=== PATIENT | male | born 1970 | race Two or more races ===

== ENCOUNTER 2018-09-26 20:45 | Emergency (ER) | payer MEDICARE, MEDICAID ==
[~2018-09-26] VITALS: Ht 165.1 cm; Wt 195.0 kg
[~2018-09-26 20:45] MED LIST: DIAZ10TA3 PO; NOR10T PO
[2018-09-26 22:15] LABS: Basophils # (auto) 0 uL; Basophils % (auto) 0.3 % (0.0-2.0); Eosinophils # (auto) 0.1 uL; Eosinophils % (auto) 1.5 % (0.0-7.0); Hematocrit 48.8 % (41.0-53.0); Hemoglobin 16.5 g/dL (13.5-17.5); Lymphocytes # (auto) 1.9 uL; Lymphocytes % (auto) 25.5 % (10.0-50.0); Mean Corpuscular Hgb Conc. 33.8 g/dL (32.0-36.0); Mean Corpuscular Volume 97.8 fL (80.0-100.0); Monocytes # (auto) 0.6 uL; Monocytes % (auto) 8.3 % (0.0-12.0); Neutrophils # (auto) 4.8 uL; Neutrophils % (auto) 64.4 % (37.0-80.0); Platelet Count (auto) 174 10^3/uL (140-450); Red Blood Cells 4.99 10^6/uL (4.5-5.90); Red Cell Distribution Width 13.5 % (11.8-14.3); White Blood Cell 7.4 10^3/uL (4.4-10.8)
[2018-09-26 22:31] LABS: Alanine Aminotransferase 37 U/L (16-61); Albumin 3.7 g/dL (3.4-5.0); Anion Gap 5 (5-15); Blood Urea Nitrogen 20 mg/dL (7-18); Calcium 8.8 mg/dL (8.5-10.1); Carbon Dioxide 29 mmol/L (21-32); Chloride 103 mmol/L (98-107); Glucose 116 mg/dL (74-106); Potassium 4.2 mmol/L (3.5-5.1); Sodium 137 mmol/L (136-145)
[2018-09-26 22:36] LABS: Alkaline Phosphatase 75 U/L (45-117); Aspartate Aminotransferase 25 U/L (15-37); BUN/Creatinine Ratio 21.7; Bilirubin, Total 0.7 mg/dL (0.2-1.0); GFR African American 113 mL/min; GFR Non-African American 93 mL/min; Total Protein 8.1 g/dL (6.4-8.2)
[2018-09-26] MEDS ORDERED: cefTRIAXone W LIDOCAINE 1 GM IM IM ONE (22:45)
[2018-09-26] MEDS ORDERED: cefTRIAXone SOD 1,000 MG VL ONE (23:18)
[2018-09-26] MEDS ORDERED: LIDOCAINE 1%HCL (LOCAL ANESTH) 10 ML MDV ONE (23:18)
[2018-09-27 00:01] VITALS: BP 129/70
== END 2018-09-27 00:21 | disposition home or self-care (01) ==
LOC: ER 20:47
DX: J18.9 Pneumonia, unspecified organism (principal); E86.0 Dehydration; K02.9 Dental caries, unspecified; I10 Essential (primary) hypertension; Z87.440 Personal history of urinary (tract) infections
CPT/HCPCS: 36415; 71045; 80053; 84484; 85025; 96372; 99284; J0696; J2001

== ENCOUNTER 2019-01-09 21:39 | Emergency (ER) | payer MEDICARE, MEDICAID ==
[~2019-01-09] VITALS: Ht 165.1 cm; Wt 204.1 kg
[2019-01-09] MEDS ORDERED: ALBUTEROL SULF 2.5 MG/0.5ML(0.5%) NEB SOLN HHN STA (21:52)
[2019-01-09] MEDS ORDERED: IPRATROPIUM BROM 0.5 MG/2.5ML INH SOL NEB ONE (22:00)
[2019-01-09 22:35] LABS: Hematocrit 46.1 % (41.0-53.0); Hemoglobin 15.8 g/dL (13.5-17.5); Mean Corpuscular Hemoglobin 33.3 pg (28.0-32.0); Mean Corpuscular Hgb Conc. 34.2 g/dL (32.0-36.0); Mean Corpuscular Volume 97.4 fL (80.0-100.0); Platelet Count (auto) 151 10^3/uL (140-450); Red Blood Cells 4.74 10^6/uL (4.5-5.90); Red Cell Distribution Width 12.8 % (11.8-14.3)
[2019-01-09 22:42] LABS: Band Neutrophils % (manual) 0; Basophils % (manual) 0 (0.0-2.0); Blast Cells 0; Metamyelocytes % 0; Myelocytes % 0; Promyelocytes % 0; Reactive Lymphocytes 0
[2019-01-09 22:55] LABS: Albumin 3.4 g/dL (3.4-5.0); BUN/Creatinine Ratio 24.1; Calcium 8.6 mg/dL (8.5-10.1); Potassium 3.7 mmol/L (3.5-5.1)
[2019-01-09 22:56] LABS: Eosinophils % (manual) 1 (0-7); Lymphocytes % (manual) 22 (10.0-50.0); Monocytes % (manual) 20 (0-12)
[2019-01-09 22:58] LABS: Bilirubin, Total 0.3 mg/dL (0.2-1.0); Total Protein 7.8 g/dL (6.4-8.2)
[2019-01-10 03:28] VITALS: BP 114/65
== END 2019-01-10 04:03 | disposition home or self-care (01) ==
LOC: ER 21:39
DX: J45.901 Unspecified asthma with (acute) exacerbation (principal); I10 Essential (primary) hypertension; Z87.891 Personal history of nicotine dependence; Z87.440 Personal history of urinary (tract) infections
CPT/HCPCS: 36415; 71046; 80053; 85007; 85027; 94640; 99284; J7611; J7644

== ENCOUNTER 2020-05-17 18:31 | Inpatient (IN) | payer MEDICARE, MEDICAID ==
[~2020-05-17] VITALS: Ht 165.1 cm; Wt 206.6 kg
[2020-05-17] MEDS ORDERED: InsuLIN REG 1unit/0.01ml Soln (100units/ml) IV ONE ×2 (19:00→22:30)
[2020-05-17] MEDS ORDERED: SODIUM CHLORIDE 0.9% 500 ML IV ONE (19:00)
[2020-05-17 19:49] LABS: Basophils # (auto) 0 10 ^3/uL (0-0.2); Basophils % (auto) 0.8 % (0.0-2.0); Eosinophils # (auto) 0.1 10 ^3/uL (0-0.8); Eosinophils % (auto) 1.2 % (0.0-7.0); Hemoglobin 15.7 g/dL (13.5-17.5); Lymphocytes # (auto) 1.4 10 ^3/uL (0.4-5.4); Lymphocytes % (auto) 22.8 % (10.0-50.0); Mean Corpuscular Hemoglobin 32.6 pg (28.0-32.0); Mean Corpuscular Hgb Conc. 31.9 g/dL (32.0-36.0); Mean Corpuscular Volume 102.2 fL (80.0-100.0); Monocytes # (auto) 0.6 10 ^3/uL (0-1.3); Monocytes % (auto) 9.1 % (0.0-12.0); Neutrophils # (auto) 4.2 10 ^3/uL (1.6-8.6); Neutrophils % (auto) 66.1 % (37.0-80.0); Nucleated Red Blood Cells % 0.1 %; Platelet Count (auto) 144 10^3/uL (140-450); Red Cell Distribution Width 13.3 % (11.8-14.3); White Blood Cell 6.3 10^3/uL (4.4-10.8)
[2020-05-17 19:59] LABS: Albumin 3.2 g/dL (3.4-5.0); Anion Gap 10 (5-15); Blood Urea Nitrogen 14 mg/dL (7-18); Calcium 8.8 mg/dL (8.5-10.1); Carbon Dioxide 25 mmol/L (21-32); Chloride 96 mmol/L (98-107); INR 1.18 (0.9-1.15); Magnesium 2.3 mg/dL (1.6-2.6); Partial Thromboplastin Time 29.6 sec (23.64-32.05); Potassium 3.6 mmol/L (3.5-5.1); Sodium 131 mmol/L (136-145)
[2020-05-17 20:05] LABS: Alanine Aminotransferase 52 U/L (16-61); Alkaline Phosphatase 145 U/L (45-117); Aspartate Aminotransferase 45 U/L (15-37); Bilirubin, Total 0.8 mg/dL (0.2-1.0); GFR African American 102 mL/min; GFR Non-African American 84 mL/min; Total Protein 7.7 g/dL (6.4-8.2)
[2020-05-17 20:09] LABS: Glucose 474 mg/dL (74-106)
[2020-05-17] MEDS ORDERED: FUROSEMIDE 40 MG/4 ML VIAL IV ONE (21:15)
[2020-05-17] MEDS ORDERED: NITROGLYCERIN 0.4 MG SL TAB SL PRN (23:00)
[2020-05-17] MEDS ORDERED: ONDANSETRON HCL 4 MG/2 ML VIAL IV PRN (23:00)
[2020-05-17] MEDS ORDERED: ACETAMINOPHEN 325 MG TAB PO PRN (23:00)
[2020-05-17] MEDS ORDERED: MORPHINE SULF INJ 2 MG/ML SYRINGE 1ML IV PRN (23:00)
[2020-05-17] MEDS ORDERED: TEMAZEPAM 15 MG CAP PO PRN (23:00)
[2020-05-17] MEDS ORDERED: DEXTROSE (50%) 50ML SYRG IV PRN (23:00)
[2020-05-18] VITALS (7 sets, daily range): BP systolic 113–143; BP diastolic 48–97
[2020-05-18] MEDS: ACCU-CHEK COMFORT CURVE STRIP VI SCH ×4 (00:13→17:27)
[2020-05-18] MEDS: InsuLIN REG 1unit/0.01ml Soln (100units/ml) SC SCH ×4 (00:13→18:20)
--- NOTE | 2020-05-18 00:41 | NUR ---
Patient arrived on the unit Patient arrived on the unit via stretcher. Patient ambulated with steady gait. A&Ox4. Patient on 12L non-rebreather mask. Patient respirations are even and non labored. O2 sat at 97%. Patient oriented to unit, room, tv, and call light. Patient did not want RN to go through personal belonging bag. RN educated patient that patient cannot take any home medications that patient may have with him. Patient verbalized understanding. Will continue to monitor.
--- NOTE | 2020-05-18 01:05 | NUR ---
[facility] HOSPITALIST REGARDING PAIN Patient c/o general/moderate chronic body pain. Patient requesting pain medication. Patient reports taking Norco10 at home.
--- NOTE | 2020-05-18 03:35 | NUR ---
PAGED HOSPITALIST Patient c/o pain and asking for [place] 10.
--- NOTE | 2020-05-18 04:28 | NUR ---
PATIENT C/O PAIN. PAGED HOSPITALIST Patient c/o general body pain and requesting [place] 10. Patient reports he takes this medication at home for chronic pain.
--- NOTE | 2020-05-18 05:17 | NUR ---
PAGED HOSPITALIST PATIENT C/O PAIN AND REQUESTING PAIN MEDICATION.
--- NOTE | 2020-05-18 05:20 | NUR ---
RECEIVED CALL BACK FROM HOSPITALIST Received new orders. Read back and verified.
[2020-05-18] MEDS ORDERED: HYDROcodone-ACET 5/325MG TAB PO PRN (05:30)
[2020-05-18] MEDS: FUROSEMIDE 40 MG/4 ML VIAL IV SCH ×2 (05:47→17:27)
[2020-05-18 06:57] LABS: Basophils # (auto) 0 10 ^3/uL (0-0.2); Basophils % (auto) 0.3 % (0.0-2.0); Eosinophils # (auto) 0 10 ^3/uL (0-0.8); Eosinophils % (auto) 0.6 % (0.0-7.0); Hematocrit 43.9 % (41.0-53.0); Hemoglobin 14.8 g/dL (13.5-17.5); Lymphocytes # (auto) 1.4 10 ^3/uL (0.4-5.4); Lymphocytes % (auto) 18.5 % (10.0-50.0); Mean Corpuscular Hemoglobin 32.9 pg (28.0-32.0); Mean Corpuscular Hgb Conc. 33.7 g/dL (32.0-36.0); Mean Corpuscular Volume 97.6 fL (80.0-100.0); Monocytes # (auto) 0.6 10 ^3/uL (0-1.3); Monocytes % (auto) 7.8 % (0.0-12.0); Neutrophils # (auto) 5.5 10 ^3/uL (1.6-8.6); Neutrophils % (auto) 72.8 % (37.0-80.0); Nucleated Red Blood Cells % 0.1 %; Platelet Count (auto) 140 10^3/uL (140-450); Red Blood Cells 4.49 10^6/uL (4.5-5.90); Red Cell Distribution Width 12.8 % (11.8-14.3); White Blood Cell 7.5 10^3/uL (4.4-10.8)
[2020-05-18 07:14] LABS: Calcium 8.6 mg/dL (8.5-10.1); Potassium 3.7 mmol/L (3.5-5.1)
[2020-05-18 07:17] LABS: BUN/Creatinine Ratio 20.8
--- NOTE | 2020-05-18 08:00 | NUR ---
Received pt sleeping comfortably, call light with in reach, will continue to monitor pt.
[2020-05-18] MEDS: amLODIPine BESYLATE 5 MG TAB PO SCH (09:27)
[2020-05-18] MEDS: FAMOTIDINE 20 MG TAB PO SCH ×2 (09:27→21:24)
[2020-05-18] MEDS: ASPirin 81 mg TAB PO SCH (09:27)
[2020-05-18] MEDS: LISINOPRIL 20 MG TAB PO SCH (09:28)
[2020-05-18] MEDS ORDERED: ENOXAPARIN SOD 40 MG/0.4 ML SYRINGE SC SCH (10:00)
[2020-05-18 11:38] LABS: Urine Bacteria NONE SEEN /hpf (None Seen); Urine Blood 2+ /uL (Negative); Urine Specific Gravity 1.031 (1.001-1.035); Urine WBC 18 /hpf (0 - 3)
--- NOTE | 2020-05-18 12:17 | NUR ---
Dr. Sethi at unit to see pt, doctor informed of pt's high blood sugar of 404 and 402, also that pt is requesting a stronger dosage of [place], pt stated that he takes [place] 10/325 mg 2 tablet q hr prn at home, orders received for [place] 10/325mg one tablet po Q6hr prn.
[2020-05-18] MEDS: HYDROcodone-ACET 10/325MG TAB PO PRN ×2 (12:29→18:22)
[2020-05-18] MEDS ORDERED: cefTRIAXone 1GM/50ML D5W 50 ML IV ONE (12:45)
--- NOTE | 2020-05-18 15:11 | NUR ---
Nutrition Assessment/consult Notes please see attached link for complete assessment Est energy needs ABW 136 [id number] kcal (11-17kcal/kg ABW), Est protein needs: 136-149g (1.0-1.1g/kg ABW). Will reassess prn. Addendum: 05/18/20 at [address] Amended: Links added.
--- NOTE | 2020-05-18 15:35 | NUR ---
PT PLACED ON BEDSIDE PULSE OX. PT ON 6 LITERS SIMPLE MASK, SPO2 98%. TRACH CARE DONE AT THIS TIME. PT HAS 8.0 UNCUFFED TRACH SECURED WITH TRACH TIE. TRACH SITE AND TIE ARE CLEAN. TRACH DRESSING CHANGED. PT STATES HE DOES NOT NEED SUCTION AT THIS TIME.
[2020-05-18] MEDS: RIVAROXABAN 20 MG TAB PO SCH (17:27)
[2020-05-18] MEDS: IPRATROPIUM BROM 0.5 MG/2.5ML INH SOL NEB SCH ×2 (18:00→21:08)
[2020-05-18] MEDS: ALBUTEROL SULF 2.5 MG/0.5ML(0.5%) NEB SOLN NEB SCH ×2 (18:00→21:08)
--- NOTE | 2020-05-18 20:00 | NUR ---
Opening Shift Note Assumed care of patient, awake and alert. A&Ox4. Patient sitting on the side on the bed. No S/S of distress/SOB or pain. Safety measures maintained by keeping the bed locked in lowest position, 2 side rails up, personal items and call light within reach. Instructed on POC and to call for assist PRN, will continue to monitor for changes Q1hr and PRN.
[2020-05-19] MEDS: ACCU-CHEK COMFORT CURVE STRIP VI SCH ×4 (00:22→18:17)
[2020-05-19] MEDS: InsuLIN REG 1unit/0.01ml Soln (100units/ml) SC SCH ×4 (00:22→18:17)
[2020-05-19] MEDS: HYDROcodone-ACET 10/325MG TAB PO PRN ×4 (00:28→21:12)
[2020-05-19] MEDS: ALBUTEROL SULF 2.5 MG/0.5ML(0.5%) NEB SOLN NEB SCH ×4 (00:41→19:13)
[2020-05-19] MEDS: IPRATROPIUM BROM 0.5 MG/2.5ML INH SOL NEB SCH ×4 (00:41→19:13)
[2020-05-19 05:00] VITALS: BP 104/52
[2020-05-19] MEDS: FUROSEMIDE 40 MG/4 ML VIAL IV SCH ×2 (06:32→18:18)
--- NOTE | 2020-05-19 07:30 | NUR ---
Opening Shift Note Assuming care of patient at this time. Patient is awake and alert. Patient denies pain at this time. Patient shows no signs or symptoms of distress or shortness of breath. Bed is locked and lowered with side rails up x2. Instructed patient on the plan of care for today and to call for assistance as needed. Call light within reach. Will continue to round hourly and as needed.
--- NOTE | 2020-05-19 08:19 | NUR ---
RT NOTE: PAGED STAT TO ICU. UNABLE TO SEE PT. WILL SEE PT FOR NEXT SCHEDULED TX.
[2020-05-19 09:00] VITALS: BP 113/61
[2020-05-19] MEDS ORDERED: DEXTROSE (50%) 50ML SYRG IV PRN (09:15)
[2020-05-19] MEDS: FAMOTIDINE 20 MG TAB PO SCH ×2 (09:38→21:09)
[2020-05-19] MEDS: amLODIPine BESYLATE 5 MG TAB PO SCH (09:39)
[2020-05-19] MEDS: LISINOPRIL 20 MG TAB PO SCH (09:40)
[2020-05-19] MEDS: cefTRIAXone 1GM/50ML D5W 50 ML IV SCH (09:41)
[2020-05-19] MEDS: ASPirin 81 mg TAB PO SCH (09:41)
--- NOTE | 2020-05-19 11:22 | NUR ---
RT NOTE: RA ABG ATTEMPTED BUT WAS UNABLE TO OBTAIN AFTER 3 ATTEMPTS. PTS SPO2 FOR THE 15 MIN DURATION OF RA WAS BETWEEN 90-92%. WILL SEE IF A SECOND RT CAN OBTAIN LATER IN SHIFT. PLACED BACK ONTO 6L MASK WITH SPO2 96
[2020-05-19 13:00] VITALS: BP_SYST 127; BP_SYST 87; BP_DIAS 57; BP_DIAS 71
[2020-05-19 13:01] VITALS: BP 127/71
--- NOTE | 2020-05-19 13:30 | NUR ---
1300 Vitals 1300 Vitals were charted incorrectly initially. 1300 vitals will be charted as 1301 to differentiate.
[2020-05-19 17:00] VITALS: BP 120/60
[2020-05-19] MEDS: RIVAROXABAN 20 MG TAB PO SCH (18:19)
--- NOTE | 2020-05-19 19:11 | NUR ---
Closing Shift Note Patient resting in bed. No distress noted. Will endorse care to the cage shift manager RN.
[2020-05-19 22:00] VITALS: BP 111/59
[2020-05-20] MEDS: ACCU-CHEK COMFORT CURVE STRIP VI SCH ×3 (00:28→12:00)
[2020-05-20] MEDS: InsuLIN REG 1unit/0.01ml Soln (100units/ml) SC SCH ×3 (00:28→12:00)
[2020-05-20] MEDS: IPRATROPIUM BROM 0.5 MG/2.5ML INH SOL NEB SCH ×3 (00:46→12:24)
[2020-05-20] MEDS: ALBUTEROL SULF 2.5 MG/0.5ML(0.5%) NEB SOLN NEB SCH ×3 (00:46→12:24)
[2020-05-20 05:00] VITALS: BP 130/61
[2020-05-20] MEDS: FUROSEMIDE 40 MG/4 ML VIAL IV SCH (06:46)
[2020-05-20] MEDS: HYDROcodone-ACET 10/325MG TAB PO PRN (07:28)
[2020-05-20] MEDS: cefTRIAXone 1GM/50ML D5W 50 ML IV SCH (09:00)
[2020-05-20 09:01] VITALS: BP 121/69
[2020-05-20] MEDS: LISINOPRIL 20 MG TAB PO SCH (09:48)
[2020-05-20] MEDS: amLODIPine BESYLATE 5 MG TAB PO SCH (09:49)
[2020-05-20] MEDS: FAMOTIDINE 20 MG TAB PO SCH (09:49)
[2020-05-20] MEDS: ASPirin 81 mg TAB PO SCH (09:50)
--- NOTE | 2020-05-20 11:26 | NUR ---
Assessment Patient is a 49-year-old male who is alert and oriented. Prior to admission patient lived home with family and functioned independently. Per patient he can care for his own ADLs. Patient informed me he has home oxygen for home use. Per patient he has a trach. Per patient he will return home to his prior living arrangements post discharge and his will transport him home. Advise patient there is a social service consult for home oxygen at 3 l/min. Informed patient clinical information will be faxed to [facility] and they will deliver portable to bedside. Informed patient he has the right to participate in all discharge planning. Patient verbalized understanding and agreed to discharge plan. Faxed clinical information to [facility] requesting for oxygen to be deliver to bedside. Per Estela with [facility] Ph: ) they will deliver oxygen to bedside at 12:30. Informed KHOI Kapadia. Addendum: 05/20/20 at 1127 by CHRIS [place]O Amended: Links added.
--- NOTE | 2020-05-20 11:30 | NUR ---
IV removed/Gauthier Removed IV catheter removed at this time. Gauthier catheter was removed at this time as well. Patient tolerated well.
[2020-05-20 11:48] VITALS: BP 121/69
--- NOTE | 2020-05-20 12:10 | NUR ---
Home Oxygen Call from [facility]. Patient's home oxygen was delivered. Will pick-up the oxygen with patient when patient is discharged.
--- NOTE | 2020-05-20 12:30 | NUR ---
Urinated Patient has urinated since removal of negro catheter.
--- NOTE | 2020-05-20 12:30 | NUR ---
Mask and Nebulizer Belongings Respiratory therapist asked patient if he would like to take masks and tubing home. Patient states that we should toss it, " I have enough junk at home."
[2020-05-20 12:41] VITALS: BP 100/58
--- NOTE | 2020-05-20 13:07 | NUR ---
Discharge Discharge instructions given as ordered. Encourage to follow up with PMD as instructed. All questions and concerns addressed. Patient verbalized understanding. Medication reconciliation form completed and copy given to patient. IV removed with catheter intact, negro catheter removed. Telemetry unit returned to ICU. Patient taken to vehicle via wheelchair with all personal belongings, accompanied by staff. Home oxygen in lobby given to patient and placed in backseat by this RN and sarai Barrett. No distress noted at time of departure.
== END 2020-05-20 13:20 | disposition home or self-care (01) | DRG 637 ==
LOC: EDBD 18:31 → ER 18:31 → TELE 18:32 → TELE-CENTR 23:58
PROVIDERS: ADMIT Nurse Practitioner; ATTEND Family Medicine
DX: E11.10 Type 2 diabetes mellitus with ketoacidosis without coma (principal); J96.20 Acute and chronic respiratory failure, unspecified whether with hypoxia or hypercapnia; E66.2 Morbid (severe) obesity with alveolar hypoventilation; Z68.45 Body mass index [BMI] 70 or greater, adult; N39.0 Urinary tract infection, site not specified; E87.1 Hypo-osmolality and hyponatremia; E87.4 Mixed disorder of acid-base balance; G89.4 Chronic pain syndrome; I10 Essential (primary) hypertension; E11.65 Type 2 diabetes mellitus with hyperglycemia; Z79.01 Long term (current) use of anticoagulants; Z83.3 Family history of diabetes mellitus; Z87.01 Personal history of pneumonia (recurrent); Z91.19 Patient's noncompliance with other medical treatment and regimen; Z88.1 Allergy status to other antibiotic agents; Z20.828 Contact with and (suspected) exposure to other viral communicable diseases
CPT/HCPCS: 36415; 36600; 71045; 80048; 80053; 81001; 82010; 82805; 82962; 83036; 83735; 83880; 84484; 85025; 85379; 85610; 85730; 93005; 93306; 94640; 94762; 96361; 96365; 96375; 99291; G0378; J0696; J1815

== ENCOUNTER 2020-11-15 06:42 | Emergency (ER) | payer MEDICARE, MEDICAID ==
[2020-11-15] MEDS ORDERED: KETAMINE 50mg/ML 10ml Vial (500mg/10ml) IV ONE (07:00)
[2020-11-15 08:19] VITALS: BP 167/109
== END 2020-11-15 09:28 | disposition home or self-care (01) ==
LOC: EDBD 06:42 → ER 06:42
DX: J18.9 Pneumonia, unspecified organism (principal); I11.0 Hypertensive heart disease with heart failure; I50.9 Heart failure, unspecified; Z43.0 Encounter for attention to tracheostomy; Z87.440 Personal history of urinary (tract) infections; Z87.891 Personal history of nicotine dependence
CPT/HCPCS: 71045; 96374

== ENCOUNTER 2020-12-22 19:38 | Emergency (ER) | payer MEDICARE, MEDICAID ==
[~2020-12-22] VITALS: Ht 165.1 cm; Wt 204.1 kg
[2020-12-22 20:54] LABS: Basophils # (auto) 0 10 ^3/uL (0-0.2); Basophils % (auto) 0.5 % (0.0-2.0); Eosinophils # (auto) 0.1 10 ^3/uL (0-0.8); Eosinophils % (auto) 1.2 % (0.0-7.0); Hematocrit 45.7 % (41.0-53.0); Hemoglobin 15.8 g/dL (13.5-17.5); Lymphocytes # (auto) 1.5 10 ^3/uL (0.4-5.4); Lymphocytes % (auto) 14.5 % (10.0-50.0); Mean Corpuscular Hemoglobin 33.1 pg (28.0-32.0); Mean Corpuscular Hgb Conc. 34.6 g/dL (32.0-36.0); Mean Corpuscular Volume 95.5 fL (80.0-100.0); Monocytes # (auto) 0.8 10 ^3/uL (0-1.3); Monocytes % (auto) 7.6 % (0.0-12.0); Neutrophils # (auto) 7.9 10 ^3/uL (1.6-8.6); Neutrophils % (auto) 76.2 % (37.0-80.0); Nucleated Red Blood Cells % 0.1 %; Platelet Count (auto) 194 10^3/uL (140-450); Red Blood Cells 4.79 10^6/uL (4.5-5.90); Red Cell Distribution Width 13.4 % (11.8-14.3); White Blood Cell 10.3 10^3/uL (4.4-10.8)
[2020-12-22 21:12] LABS: INR 1.11 (0.9-1.15); Partial Thromboplastin Time 35.7 sec (23.0-31.2)
[2020-12-22 21:16] LABS: Albumin 3.5 g/dL (3.4-5.0); Anion Gap 5 (5-15); Blood Urea Nitrogen 12 mg/dL (7-18); Calcium 8.9 mg/dL (8.5-10.1); Carbon Dioxide 29 mmol/L (21-32); Chloride 101 mmol/L (98-107); Glucose 116 mg/dL (74-106); Magnesium 1.8 mg/dL (1.6-2.6); Potassium 3.8 mmol/L (3.5-5.1); Sodium 135 mmol/L (136-145)
[2020-12-22 21:23] LABS: Alanine Aminotransferase 28 U/L (16-61); Alkaline Phosphatase 76 U/L (45-117); Aspartate Aminotransferase 24 U/L (15-37); Bilirubin, Total 0.4 mg/dL (0.2-1.0); GFR African American 132 mL/min; GFR Non-African American 109 mL/min; Total Protein 8.8 g/dL (6.4-8.2)
[2020-12-23 06:00] VITALS: BP 147/80
== END 2020-12-23 07:26 | disposition home or self-care (01) ==
LOC: EDBD 19:38 → ER 19:43
DX: R07.89 Other chest pain (principal); I11.0 Hypertensive heart disease with heart failure; I50.9 Heart failure, unspecified; E11.9 Type 2 diabetes mellitus without complications; Z87.891 Personal history of nicotine dependence; Z79.899 Other long term (current) drug therapy
CPT/HCPCS: 36415; 71045; 80053; 83735; 83880; 84484; 85025; 85610; 85730; 93005

== ENCOUNTER 2021-11-30 14:08 | Inpatient (IN) | payer MEDICARE, MEDICAID ==
[~2021-11-30] VITALS: Ht 157.5 cm; Wt 189.3 kg
[2021-11-30 15:51] LABS: Basophils # (auto) 0 10 ^3/uL (0-0.2); Basophils % (auto) 0.5 % (0.0-2.0); Eosinophils # (auto) 0 10 ^3/uL (0-0.8); Eosinophils % (auto) 0.2 % (0.0-7.0); Hemoglobin 15.1 g/dL (13.5-17.5); Lymphocytes # (auto) 1.2 10 ^3/uL (0.4-5.4); Lymphocytes % (auto) 31.1 % (10.0-50.0); Mean Corpuscular Hemoglobin 32.1 pg (28.0-32.0); Mean Corpuscular Hgb Conc. 34.2 g/dL (32.0-36.0); Mean Corpuscular Volume 93.7 fL (80.0-100.0); Monocytes # (auto) 0.6 10 ^3/uL (0-1.3); Monocytes % (auto) 14.8 % (0.0-12.0); Neutrophils # (auto) 2.1 10 ^3/uL (1.6-8.6); Neutrophils % (auto) 53.4 % (37.0-80.0); Nucleated Red Blood Cells % 0.2 %; Red Blood Cells 4.69 10^6/uL (4.5-5.90); Red Cell Distribution Width 13.1 % (11.8-14.3); White Blood Cell 3.9 10^3/uL (4.4-10.8)
[2021-11-30 16:06] LABS: Albumin 3.4 g/dL (3.4-5.0); Calcium 8.6 mg/dL (8.5-10.1); Potassium 3.3 mmol/L (3.5-5.1)
[2021-11-30 16:18] LABS: BUN/Creatinine Ratio 13.4; Bilirubin, Total 0.6 mg/dL (0.2-1.0)
[2021-11-30 20:45] VITALS: BP 138/85
[2021-11-30] MEDS ORDERED: AZITHROMYCIN 250 MG TAB PO ONE (23:15)
[2021-11-30] MEDS ORDERED: cefTRIAXone 1GM/50ML D5W 50 ML IV ONE (23:15)
[2021-12-01] MEDS ORDERED: NITROGLYCERIN 0.4 MG SL TAB SL PRN (03:45)
[2021-12-01] MEDS ORDERED: ONDANSETRON HCL 4 MG/2 ML VIAL IV PRN (03:45)
[2021-12-01] MEDS ORDERED: MORPHINE SULFATE INJECTION 2 MG/ML SYRG IV PRN (03:45)
[2021-12-01] MEDS ORDERED: ACETAMINOPHEN 500 MG TAB PO PRN (03:45)
[2021-12-01] MEDS ORDERED: REMDESIVIR PER PHARMACY 0 ML IV SCH (03:45)
[2021-12-01] MEDS ORDERED: DEXTROSE (50%) 50ML SYRG IV PRN (03:45)
[2021-12-01] MEDS: ACCU-CHEK COMFORT CURVE STRIP VI SCH ×3 (08:07→17:51)
[2021-12-01] MEDS: InsuLIN REG 1unit/0.01ml Soln (100units/ml) SC SCH ×4 (08:07→22:45)
[2021-12-01 08:45] VITALS: BP 138/85
[2021-12-01] MEDS ORDERED: HYDROcodone-ACET 10/325MG TAB PO ONE (09:30)
[2021-12-01] MEDS: cefTRIAXone 1GM/50ML D5W 50 ML IV SCH (09:47)
[2021-12-01] MEDS: ENOXAPARIN SOD 40 MG/0.4 ML SYRINGE SC SCH ×2 (10:00→11:44)
[2021-12-01] MEDS: ZINC SULFATE 220mg CAP or TAB PO SCH (11:43)
[2021-12-01] MEDS: ASCORBIC ACID 1,000 MG TAB PO SCH (11:43)
[2021-12-01] MEDS: CHOLECALCIFEROL (VITD3) 2,000 UNIT CAP/TAB PO SCH (11:43)
[2021-12-01] MEDS: AZITHROMYCIN 500MG/ 250ML 250 ML IV SCH (11:44)
[2021-12-01] MEDS: DexAMETHasone SOD PHOS 10MG/1ML VIAL INJ IV SCH (11:44)
[2021-12-01 12:43] VITALS: BP 138/85
[2021-12-01] MEDS ORDERED: LORazepam 0.5 MG TAB PO PRN (14:45)
[2021-12-01] MEDS ORDERED: POTASSIUM CHL 20 Meq TABLET PO ONE (14:45)
[2021-12-01] MEDS ORDERED: RIVA20TA PO (14:50)
[2021-12-01] MEDS ORDERED: ASPI-543 PO (14:50)
[2021-12-01] MEDS ORDERED: FENO200C PO (14:50)
[2021-12-01] MEDS ORDERED: FURO40TA4 PO (14:50)
[2021-12-01] MEDS ORDERED: LISI20TA28 PO (14:50)
[2021-12-01] MEDS ORDERED: AMLO-489 PO (14:50)
[2021-12-01] MEDS ORDERED: REMDESIVIR 200 MG in NS 210ml LOADING DOSE ADULT IV ONE (15:00)
[2021-12-01 17:47] VITALS: BP 142/60
[2021-12-01] MEDS: HYDROcodone-ACET 10/325MG TAB PO PRN (18:07)
[2021-12-01 21:23] VITALS: BP 118/63
[2021-12-01] MEDS: INSULIN LANTUS (GLARGINE) 1 /0.01ml (100units/ml) SC SCH (22:46)
[2021-12-02] MEDS: ACCU-CHEK COMFORT CURVE STRIP VI SCH ×5 (00:04→21:43)
[2021-12-02] MEDS: ENOXAPARIN SOD 40 MG/0.4 ML SYRINGE SC SCH ×3 (00:06→21:20)
[2021-12-02 06:17] LABS: INR 1.04 (0.9-1.15)
[2021-12-02] MEDS: InsuLIN REG 1unit/0.01ml Soln (100units/ml) SC SCH ×5 (06:25→22:00)
[2021-12-02] MEDS: HYDROcodone-ACET 10/325MG TAB PO PRN ×3 (06:30→21:20)
[2021-12-02 07:04] LABS: Basophils # (auto) 0 10 ^3/uL (0-0.2); Basophils % (auto) 0.4 % (0.0-2.0); Eosinophils # (auto) 0 10 ^3/uL (0-0.8); Hematocrit 40.6 % (41.0-53.0); Lymphocytes # (auto) 0.7 10 ^3/uL (0.4-5.4); Lymphocytes % (auto) 25.9 % (10.0-50.0); Mean Corpuscular Hemoglobin 32.4 pg (28.0-32.0); Mean Corpuscular Hgb Conc. 34.5 g/dL (32.0-36.0); Mean Corpuscular Volume 93.7 fL (80.0-100.0); Monocytes # (auto) 0.4 10 ^3/uL (0-1.3); Monocytes % (auto) 13.6 % (0.0-12.0); Neutrophils # (auto) 1.7 10 ^3/uL (1.6-8.6); Neutrophils % (auto) 60.1 % (37.0-80.0); Nucleated Red Blood Cells % 0.3 %; Red Blood Cells 4.33 10^6/uL (4.5-5.90); White Blood Cell 2.8 10^3/uL (4.4-10.8)
[2021-12-02 07:11] LABS: Potassium 4.3 mmol/L (3.5-5.1)
[2021-12-02 07:26] LABS: Albumin 2.9 g/dL (3.4-5.0); Bilirubin, Total 0.3 mg/dL (0.2-1.0); CRP High Sensitivity 0.55 mg/dL (< 0.3); Calcium 8.8 mg/dL (8.5-10.1); Magnesium 2.1 mg/dL (1.6-2.6); Total Protein 7.2 g/dL (6.4-8.2)
[2021-12-02 09:00] VITALS: BP 96/51
[2021-12-02] MEDS: FUROSEMIDE 20 MG/2 ML VIAL IV SCH (10:00)
[2021-12-02] MEDS ORDERED: POTASSIUM CHL 20 Meq TABLET PO SCH (10:00)
[2021-12-02] MEDS: DexAMETHasone SOD PHOS 10MG/1ML VIAL INJ IV SCH (10:31)
[2021-12-02] MEDS: cefTRIAXone 1GM/50ML D5W 50 ML IV SCH (10:31)
[2021-12-02] MEDS: ASCORBIC ACID 1,000 MG TAB PO SCH (10:32)
[2021-12-02] MEDS: CHOLECALCIFEROL (VITD3) 2,000 UNIT CAP/TAB PO SCH (10:32)
[2021-12-02] MEDS: ZINC SULFATE 220mg CAP or TAB PO SCH (10:33)
[2021-12-02 12:12] LABS: Thyroid Stimulating Hormone 0.27 uIU/mL (0.358-3.74)
[2021-12-02] MEDS: AZITHROMYCIN 500MG/ 250ML 250 ML IV SCH (12:45)
[2021-12-02 13:00] VITALS: BP 133/67
[2021-12-02] MEDS ORDERED: NITR0.4S29 SL (14:49)
[2021-12-02] MEDS ORDERED: FURO80TA3 PO (14:49)
[2021-12-02] MEDS ORDERED: HYDR-4072 PO (14:49)
[2021-12-02] MEDS ORDERED: AMLO-496 PO (14:49)
[2021-12-02] MEDS: REMDESIVIR 100mg 100 MG in SODIUM CHL 0.9% 230 ML IV SCH (16:06)
[2021-12-02 17:00] VITALS: BP 123/72
[2021-12-02 18:41] LABS: Urine Bacteria FEW /hpf (None Seen); Urine Blood Negative /uL (Negative); Urine Hyaline Cast FEW /lpf (0 - 2); Urine Mucus FEW (None Seen); Urine Specific Gravity 1.025 (1.001-1.035); Urine WBC 10 /hpf (0 - 3)
[2021-12-02] MEDS: ALBUTEROL SULF HFA 90MCG INH 200DOSE IN PRN (19:25)
[2021-12-02] MEDS: INSULIN LANTUS (GLARGINE) 1 /0.01ml (100units/ml) SC SCH (21:47)
[2021-12-03] MEDS: ALBUTEROL SULF HFA 90MCG INH 200DOSE IN PRN (06:09)
[2021-12-03] MEDS: HYDROcodone-ACET 10/325MG TAB PO PRN ×3 (06:17→21:10)
[2021-12-03] MEDS: ACCU-CHEK COMFORT CURVE STRIP VI SCH ×4 (06:17→21:34)
[2021-12-03] MEDS: InsuLIN REG 1unit/0.01ml Soln (100units/ml) SC SCH ×4 (06:18→21:35)
[2021-12-03 07:11] LABS: Albumin 2.7 g/dL (3.4-5.0); Basophils # (auto) 0 10 ^3/uL (0-0.2); Basophils % (auto) 0.3 % (0.0-2.0); Bilirubin, Direct 0.1 mg/dL (0-0.2); Bilirubin, Total 0.3 mg/dL (0.2-1.0); Eosinophils # (auto) 0 10 ^3/uL (0-0.8); Hemoglobin 13.3 g/dL (13.5-17.5); Lymphocytes # (auto) 1.1 10 ^3/uL (0.4-5.4); Lymphocytes % (auto) 27.4 % (10.0-50.0); Mean Corpuscular Hemoglobin 31.5 pg (28.0-32.0); Mean Corpuscular Hgb Conc. 33.3 g/dL (32.0-36.0); Mean Corpuscular Volume 94.7 fL (80.0-100.0); Monocytes # (auto) 0.4 10 ^3/uL (0-1.3); Monocytes % (auto) 10.8 % (0.0-12.0); Neutrophils # (auto) 2.4 10 ^3/uL (1.6-8.6); Neutrophils % (auto) 61.5 % (37.0-80.0); Nucleated Red Blood Cells % 0.2 %; Red Blood Cells 4.23 10^6/uL (4.5-5.90); Red Cell Distribution Width 13.1 % (11.8-14.3); Total Protein 6.6 g/dL (6.4-8.2); White Blood Cell 3.9 10^3/uL (4.4-10.8)
[2021-12-03 08:00] VITALS: BP 111/67
[2021-12-03] MEDS: cefTRIAXone 1GM/50ML D5W 50 ML IV SCH (09:14)
[2021-12-03] MEDS: ENOXAPARIN SOD 40 MG/0.4 ML SYRINGE SC SCH ×2 (09:14→21:11)
[2021-12-03] MEDS: ZINC SULFATE 220mg CAP or TAB PO SCH (09:15)
[2021-12-03] MEDS: CHOLECALCIFEROL (VITD3) 2,000 UNIT CAP/TAB PO SCH (09:15)
[2021-12-03] MEDS: ASCORBIC ACID 1,000 MG TAB PO SCH (09:15)
[2021-12-03] MEDS: DexAMETHasone SOD PHOS 10MG/1ML VIAL INJ IV SCH (09:15)
[2021-12-03] MEDS: POTASSIUM CHL 10 Meq TABLET PO SCH (09:16)
[2021-12-03] MEDS: FUROSEMIDE 20 MG/2 ML VIAL IV SCH (09:16)
[2021-12-03] MEDS: AZITHROMYCIN 500MG/ 250ML 250 ML IV SCH (10:00)
[2021-12-03 12:00] VITALS: BP 124/73
[2021-12-03] MEDS: REMDESIVIR 100mg 100 MG in SODIUM CHL 0.9% 230 ML IV SCH (15:32)
[2021-12-03 16:00] VITALS: BP 135/69
[2021-12-03] MEDS: INSULIN LANTUS (GLARGINE) 1 /0.01ml (100units/ml) SC SCH (21:34)
[2021-12-03 22:00] VITALS: BP 136/68
[2021-12-04 05:00] VITALS: BP 130/84
[2021-12-04] MEDS: ALBUTEROL SULF HFA 90MCG INH 200DOSE IN PRN ×2 (05:42→19:08)
[2021-12-04] MEDS: ACCU-CHEK COMFORT CURVE STRIP VI SCH ×4 (06:17→21:37)
[2021-12-04] MEDS: InsuLIN REG 1unit/0.01ml Soln (100units/ml) SC SCH ×4 (06:28→21:41)
[2021-12-04] MEDS: HYDROcodone-ACET 10/325MG TAB PO PRN ×3 (07:10→23:24)
[2021-12-04 09:03] VITALS: BP 114/50
[2021-12-04] MEDS: cefTRIAXone 1GM/50ML D5W 50 ML IV SCH (10:26)
[2021-12-04] MEDS: DexAMETHasone SOD PHOS 10MG/1ML VIAL INJ IV SCH (10:27)
[2021-12-04] MEDS: FUROSEMIDE 20 MG/2 ML VIAL IV SCH (10:27)
[2021-12-04] MEDS: ASCORBIC ACID 1,000 MG TAB PO SCH (10:28)
[2021-12-04] MEDS: CHOLECALCIFEROL (VITD3) 2,000 UNIT CAP/TAB PO SCH (10:29)
[2021-12-04] MEDS: POTASSIUM CHL 10 Meq TABLET PO SCH (10:29)
[2021-12-04] MEDS: ENOXAPARIN SOD 40 MG/0.4 ML SYRINGE SC SCH ×2 (10:29→21:28)
[2021-12-04] MEDS: ZINC SULFATE 220mg CAP or TAB PO SCH (10:29)
[2021-12-04] MEDS: AZITHROMYCIN 500MG/ 250ML 250 ML IV SCH (12:35)
[2021-12-04 13:00] VITALS: BP 122/66
[2021-12-04] MEDS: REMDESIVIR 100mg 100 MG in SODIUM CHL 0.9% 230 ML IV SCH (15:47)
[2021-12-04 17:00] VITALS: BP 126/70
[2021-12-04] MEDS: INSULIN LANTUS (GLARGINE) 1 /0.01ml (100units/ml) SC SCH (21:41)
[2021-12-04 22:00] VITALS: BP 122/70
[2021-12-05 05:00] VITALS: BP 110/71
[2021-12-05 06:21] LABS: Hematocrit 42.8 % (41.0-53.0); Hemoglobin 14.6 g/dL (13.5-17.5)
[2021-12-05] MEDS: ACCU-CHEK COMFORT CURVE STRIP VI SCH ×3 (06:28→17:00)
[2021-12-05] MEDS: InsuLIN REG 1unit/0.01ml Soln (100units/ml) SC SCH ×3 (06:29→17:00)
[2021-12-05 06:44] LABS: Albumin 2.9 g/dL (3.4-5.0); Calcium 8.6 mg/dL (8.5-10.1); Potassium 3.8 mmol/L (3.5-5.1)
[2021-12-05 06:48] LABS: BUN/Creatinine Ratio 30.6; Bilirubin, Total 0.4 mg/dL (0.2-1.0); CRP High Sensitivity 0.06 mg/dL (< 0.3)
[2021-12-05] MEDS: HYDROcodone-ACET 10/325MG TAB PO PRN ×2 (07:09→15:12)
[2021-12-05 08:00] VITALS: BP 115/58
[2021-12-05] MEDS: ALBUTEROL SULF HFA 90MCG INH 200DOSE IN PRN (08:24)
[2021-12-05 09:00] VITALS: BP 115/58
[2021-12-05] MEDS: AZITHROMYCIN 500MG/ 250ML 250 ML IV SCH (09:57)
[2021-12-05] MEDS: FUROSEMIDE 20 MG/2 ML VIAL IV SCH (09:57)
[2021-12-05] MEDS: DexAMETHasone SOD PHOS 10MG/1ML VIAL INJ IV SCH (09:57)
[2021-12-05] MEDS: cefTRIAXone 1GM/50ML D5W 50 ML IV SCH (09:57)
[2021-12-05] MEDS: ASCORBIC ACID 1,000 MG TAB PO SCH (09:58)
[2021-12-05] MEDS: ENOXAPARIN SOD 40 MG/0.4 ML SYRINGE SC SCH (09:58)
[2021-12-05] MEDS: CHOLECALCIFEROL (VITD3) 2,000 UNIT CAP/TAB PO SCH (09:58)
[2021-12-05] MEDS: POTASSIUM CHL 10 Meq TABLET PO SCH (09:58)
[2021-12-05] MEDS: ZINC SULFATE 220mg CAP or TAB PO SCH (09:58)
[2021-12-05 13:00] VITALS: BP 117/76
[2021-12-05] MEDS: REMDESIVIR 100mg 100 MG in SODIUM CHL 0.9% 230 ML IV SCH (15:00)
[2021-12-05] MEDS ORDERED: CHOL20007 PO (15:05)
[2021-12-05] MEDS ORDERED: ZINC220T6 PO (15:05)
[2021-12-05] MEDS ORDERED: ALBUAER3 IN (15:05)
[2021-12-05] MEDS ORDERED: ASCO10003 PO (15:05)
[2021-12-05] MEDS ORDERED: DEX4T PO (15:05)
[2021-12-05] MEDS ORDERED: DOXY-286 PO (15:05)
[2021-12-05 16:38] VITALS: BP 115/58
[2021-12-05 17:00] VITALS: BP 126/71
== END 2021-12-05 17:35 | disposition home or self-care (01) | DRG 871 ==
LOC: ER 14:08 → EDBD 14:08 → TELE 12-01 03:42 → TELE-EAST 12-01 10:35
PROVIDERS: ADMIT Nurse Practitioner; ATTEND Internal Medicine
PROC: XW033E5 Introduction of Remdesivir Anti-infective into Peripheral Vein, Percutaneous Approach, New Technology Group 5 (ICD-10-PCS; principal; 2021-12-01)
DX: A41.89 Other specified sepsis (principal); U07.1 COVID-19; J12.82 Pneumonia due to coronavirus disease 2019; J96.20 Acute and chronic respiratory failure, unspecified whether with hypoxia or hypercapnia; Z68.45 Body mass index [BMI] 70 or greater, adult; E11.9 Type 2 diabetes mellitus without complications; E66.01 Morbid (severe) obesity due to excess calories; E55.9 Vitamin D deficiency, unspecified; E87.6 Hypokalemia; G47.33 Obstructive sleep apnea (adult) (pediatric); F41.9 Anxiety disorder, unspecified; G89.4 Chronic pain syndrome; I11.0 Hypertensive heart disease with heart failure; I50.9 Heart failure, unspecified; Z83.3 Family history of diabetes mellitus
CPT/HCPCS: 36415; 71045; 80053; 80061; 80076; 81001; 82306; 82728; 82962; 83036; 83615; 83735; 84132; 84443; 84484; 85014; 85018; 85025; 85379; 85610; 86141; 87086; 87426; 93005; 94640; 96365; 96367; G0378; J0696; J1100; J1815; J2405

== ENCOUNTER 2022-09-25 16:22 | Inpatient (IN) | payer MEDICARE, MEDICAID ==
[~2022-09-25] VITALS: Ht 165.1 cm; Wt 181.0 kg
[~2022-09-25 16:22] MED LIST changes: +ALBUAER3 IN; +AMLO-496 PO; +ASCO10003 PO; +ASPI-543 PO; +DEX4T PO; -DIAZ10TA3 PO; +DOXY-286 PO; +FENO200C PO; +FURO80TA3 PO; +HYDR-4072 PO; +LISI20TA28 PO; +NITR0.4S29 SL; -NOR10T PO; +RIVA20TA PO; +ZINC220T6 PO
[2022-09-25 18:07] LABS: Basophils # (auto) 0 10 ^3/uL (0-0.2); Basophils % (auto) 0.2 % (0.0-2.0); Eosinophils # (auto) 0.1 10 ^3/uL (0-0.8); Eosinophils % (auto) 0.9 % (0.0-7.0); Hematocrit 47.8 % (41.0-53.0); Hemoglobin 15.7 g/dL (13.5-17.5); Lymphocytes # (auto) 1.3 10 ^3/uL (0.4-5.4); Lymphocytes % (auto) 11.7 % (10.0-50.0); Mean Corpuscular Hemoglobin 31.4 pg (28.0-32.0); Mean Corpuscular Hgb Conc. 32.8 g/dL (32.0-36.0); Mean Corpuscular Volume 95.6 fL (80.0-100.0); Monocytes # (auto) 0.9 10 ^3/uL (0-1.3); Monocytes % (auto) 7.7 % (0.0-12.0); Neutrophils % (auto) 79.5 % (37.0-80.0); Red Cell Distribution Width 13.2 % (11.8-14.3); White Blood Cell 11.3 10^3/uL (4.4-10.8)
[2022-09-25 18:24] LABS: INR 1.04 (0.9-1.15); Partial Thromboplastin Time 27.7 sec (24.6-33.4)
[2022-09-25 18:26] LABS: Albumin 3.4 g/dL (3.4-5.0); Anion Gap 10 (5-15); BUN/Creatinine Ratio 26.1; Blood Urea Nitrogen 18 mg/dL (7-18); Calcium 9.1 mg/dL (8.5-10.1); Carbon Dioxide 25 mmol/L (21-32); Chloride 103 mmol/L (98-107); GFR African American 155 mL/min; GFR Non-African American 128 mL/min; Glucose 165 mg/dL (74-106); Potassium 4.4 mmol/L (3.5-5.1); Sodium 138 mmol/L (136-145)
[2022-09-25 18:29] LABS: Alanine Aminotransferase 38 U/L (16-61); Alkaline Phosphatase 96 U/L (45-117); Aspartate Aminotransferase 43 U/L (15-37); Bilirubin, Total 0.5 mg/dL (0.2-1.0); Total Protein 7.8 g/dL (6.4-8.2)
[2022-09-25] MEDS ORDERED: MORPHINE SULFATE INJ 2 MG/ml SYRG IV PRN (21:30)
[2022-09-25] MEDS ORDERED: NITROGLYCERIN 0.4 MG SL TAB SL PRN (21:30)
[2022-09-25] MEDS ORDERED: ACETAMINOPHEN 325 MG TAB PO PRN (21:30)
[2022-09-25] MEDS ORDERED: ONDANSETRON HCL 4 MG/2 ML VIAL IV PRN (21:30)
[2022-09-25] MEDS ORDERED: DEXTROSE (50%) 50ML SYRG IV PRN (21:30)
[2022-09-25] MEDS ORDERED: TEMAZEPAM 15 MG CAP PO PRN (21:30)
[2022-09-25] MEDS ORDERED: ACCU-CHEK COMFORT CURVE STRIP VI SCH (22:00)
[2022-09-25] MEDS ORDERED: InsuLIN REG 1unit/0.01ml Soln (100units/ml) SC SCH (22:00)
[2022-09-26 06:00] VITALS: BP 135/64
[2022-09-26] MEDS ORDERED: FUROSEMIDE 40 MG TAB PO SCH (06:00)
[2022-09-26] MEDS ORDERED: PANTOPRAZOLE 40 MG TAB PO SCH (10:00)
[2022-09-26] MEDS ORDERED: ENOXAPARIN SOD 40 MG/0.4 ML SYRINGE SC SCH (10:00)
[2022-09-26] MEDS ORDERED: amLODIPine BESYLATE 5 MG TAB PO SCH (10:00)
[2022-09-26] MEDS ORDERED: ASPirin 81 mg TAB PO SCH (10:00)
[2022-09-26] MEDS ORDERED: RIVAROXABAN 20 MG TAB PO SCH (18:00)
== END 2022-09-26 06:10 | disposition left against medical advice (07) | DRG 311 ==
LOC: EDBD 16:22 → ER 16:22 → TELE 21:33
PROVIDERS: ADMIT Nurse Practitioner; ATTEND Nurse Practitioner
DX: I20.0 Unstable angina (principal); Z20.822 Contact with and (suspected) exposure to COVID-19; E11.9 Type 2 diabetes mellitus without complications; E78.5 Hyperlipidemia, unspecified; I11.0 Hypertensive heart disease with heart failure; Z53.29 Procedure and treatment not carried out because of patient's decision for other reasons; I50.9 Heart failure, unspecified; Z80.9 Family history of malignant neoplasm, unspecified; Z83.3 Family history of diabetes mellitus; Z88.1 Allergy status to other antibiotic agents; Z93.0 Tracheostomy status; Z87.440 Personal history of urinary (tract) infections
CPT/HCPCS: 36415; 71045; 80053; 82962; 83880; 84484; 85025; 85610; 85730; 87426; 93005; 96372; 99291; G0378; J1815

== ENCOUNTER 2023-04-29 23:18 | Inpatient (IN) | payer MEDICARE, MEDICAID ==
[~2023-04-29] VITALS: Ht 180.3 cm; Wt 136.3 kg
[~2023-04-29 23:18] MED LIST changes: -AMLO-496 PO; +AMLO1TAB23 PO; -FENO200C PO; +FENO200C25 PO; -LISI20TA28 PO; +LISI20TA56 PO
[2023-04-29 23:43] LABS: Basophils # (auto) 0 10 ^3/uL (0-0.2); Basophils % (auto) 0.4 % (0.0-2.0); Eosinophils # (auto) 0.1 10 ^3/uL (0-0.8); Eosinophils % (auto) 1.4 % (0.0-7.0); Hematocrit 43.1 % (41.0-53.0); Hemoglobin 14.6 g/dL (13.5-17.5); Lymphocytes # (auto) 1.7 10 ^3/uL (0.4-5.4); Lymphocytes % (auto) 24.2 % (10.0-50.0); Mean Corpuscular Hemoglobin 32.2 pg (28.0-32.0); Mean Corpuscular Hgb Conc. 33.9 g/dL (32.0-36.0); Mean Corpuscular Volume 95.1 fL (80.0-100.0); Monocytes # (auto) 0.5 10 ^3/uL (0-1.3); Monocytes % (auto) 7.6 % (0.0-12.0); Neutrophils # (auto) 4.7 10 ^3/uL (1.6-8.6); Neutrophils % (auto) 66.4 % (37.0-80.0); Red Blood Cells 4.53 10^6/uL (4.5-5.90); Red Cell Distribution Width 13.5 % (11.8-14.3); White Blood Cell 7.2 10^3/uL (4.4-10.8)
[2023-04-29 23:59] LABS: INR 1.24 (0.9-1.15); Partial Thromboplastin Time 39.4 SEC (24.5-34.5)
[2023-04-30 00:16] LABS: BUN/Creatinine Ratio 25.3 (10.0-20.0); Potassium 3.5 mmol/L (3.5-5.1)
[2023-04-30 00:17] LABS: Albumin 3.4 g/dL (3.4-5.0); Bilirubin, Total 0.4 mg/dL (0.2-1.0); Calcium 9.1 mg/dL (8.5-10.1); Magnesium 1.8 mg/dL (1.6-2.6); Total Protein 7.8 g/dL (6.4-8.2)
[2023-04-30] MEDS ORDERED: NITROGLYCERIN 0.4 MG SL TAB SL PRN (06:30)
[2023-04-30] MEDS ORDERED: ACETAMINOPHEN 325 MG TAB PO PRN (06:30)
[2023-04-30] MEDS ORDERED: DEXTROSE (50%) 50ML SYRG IV PRN (06:30)
[2023-04-30] MEDS ORDERED: ONDANSETRON HCL 4 MG/2 ML VIAL IV PRN (06:30)
[2023-04-30] MEDS ORDERED: ALBUTEROL SULF 2.5 MG/0.5ML(0.5%) NEB SOLN NEB PRN (06:30)
[2023-04-30] MEDS ORDERED: MORPHINE SULFATE INJ 2 MG/ml SYRG IV PRN (06:30)
[2023-04-30] MEDS: InsuLIN REG 1unit/0.01ml Soln (100units/ml) SC SCH ×4 (07:00→22:43)
[2023-04-30] MEDS: ACCU-CHEK COMFORT CURVE STRIP VI SCH ×4 (07:14→22:20)
[2023-04-30] MEDS: ASPirin 81 mg TAB PO SCH (09:27)
[2023-04-30] MEDS: PANTOPRAZOLE 40 MG TAB PO SCH (09:27)
[2023-04-30] MEDS: LISINOPRIL 20 MG TAB PO SCH (09:29)
[2023-04-30] MEDS: amLODIPine BESYLATE 5 MG TAB PO SCH (09:29)
[2023-04-30] MEDS: PATIENTS OWN MEDICATION (xarelto 20 MG) PO SCH (09:31)
[2023-04-30] MEDS: FUROSEMIDE 40 MG TAB PO SCH (18:24)
[2023-05-01] VITALS (8 sets, daily range): BP systolic 95–127; BP diastolic 44–80
[2023-05-01 05:15] LABS: Basophils # (auto) 0 10 ^3/uL (0-0.2); Basophils % (auto) 0.4 % (0.0-2.0); Eosinophils # (auto) 0.1 10 ^3/uL (0-0.8); Eosinophils % (auto) 1.5 % (0.0-7.0); Hematocrit 41.5 % (41.0-53.0); Hemoglobin 14.2 g/dL (13.5-17.5); Lymphocytes # (auto) 2.3 10 ^3/uL (0.4-5.4); Mean Corpuscular Hemoglobin 32.5 pg (28.0-32.0); Mean Corpuscular Hgb Conc. 34.1 g/dL (32.0-36.0); Mean Corpuscular Volume 95.3 fL (80.0-100.0); Monocytes # (auto) 0.7 10 ^3/uL (0-1.3); Monocytes % (auto) 8.7 % (0.0-12.0); Neutrophils # (auto) 4.5 10 ^3/uL (1.6-8.6); Neutrophils % (auto) 59.4 % (37.0-80.0); Nucleated Red Blood Cells % 0.2 %; Red Blood Cells 4.35 10^6/uL (4.5-5.90); Red Cell Distribution Width 13.4 % (11.8-14.3); White Blood Cell 7.5 10^3/uL (4.4-10.8)
[2023-05-01 05:24] LABS: Calcium 9.1 mg/dL (8.5-10.1)
[2023-05-01 05:26] LABS: BUN/Creatinine Ratio 38.8 (10.0-20.0)
[2023-05-01] MEDS: FUROSEMIDE 40 MG TAB PO SCH ×2 (06:00→18:00)
[2023-05-01] MEDS: InsuLIN REG 1unit/0.01ml Soln (100units/ml) SC SCH ×4 (06:27→22:25)
[2023-05-01] MEDS: ACCU-CHEK COMFORT CURVE STRIP VI SCH ×4 (06:27→22:24)
[2023-05-01] MEDS ORDERED: IODIXANOL 320MG/ML 100ML BTL IV ONE (11:15)
[2023-05-01] MEDS ORDERED: LIDOCAINE 2%HCL (LOCAL ANESTH.) INJ 20ML MDV ONE (11:15)
[2023-05-01] MEDS ORDERED: IOHEXOL 350 MG/ML 100ML IJ ONE (11:32)
[2023-05-01] MEDS ORDERED: ANGIOMAX 250 MG VIAL IV ONE (11:33)
[2023-05-01] MEDS ORDERED: HEPARIN SODIUM (PORCINE) 5000 UNITS/ML 1ML VIAL ONE (11:33)
[2023-05-01] MEDS ORDERED: VERAPAMIL 2.5MG/ML INJ 2ML VIAL IV ONE (11:33)
[2023-05-01] MEDS ORDERED: fentaNYL CITRATE 100 MCG/2 ML VL ONE (11:34)
[2023-05-01] MEDS ORDERED: SODIUM CHL 0.9% 0 ML ONE (11:34)
[2023-05-01] MEDS ORDERED: MIDAZOLAM HCL 2MG/2ML 2ml VIAL (1mg/ml) ONE (11:34)
[2023-05-01] MEDS ORDERED: HYDROmorphone HCL 2 MG/ML VL/or syr ONE (11:48)
[2023-05-01] MEDS: PANTOPRAZOLE 40 MG TAB PO SCH (12:55)
[2023-05-01] MEDS: ASPirin 81 mg TAB PO SCH (12:55)
[2023-05-01] MEDS: LISINOPRIL 20 MG TAB PO SCH (12:56)
[2023-05-01] MEDS: amLODIPine BESYLATE 5 MG TAB PO SCH (12:57)
[2023-05-02] MEDS: FUROSEMIDE 40 MG TAB PO SCH (05:47)
[2023-05-02 05:49] VITALS: BP 105/52
[2023-05-02] MEDS: ACCU-CHEK COMFORT CURVE STRIP VI SCH ×2 (06:00→12:42)
[2023-05-02] MEDS: InsuLIN REG 1unit/0.01ml Soln (100units/ml) SC SCH ×2 (06:00→12:42)
[2023-05-02 06:45] LABS: Basophils # (auto) 0 10 ^3/uL (0-0.2); Basophils % (auto) 0.5 % (0.0-2.0); Eosinophils # (auto) 0.1 10 ^3/uL (0-0.8); Eosinophils % (auto) 1.6 % (0.0-7.0); Hematocrit 39.7 % (41.0-53.0); Hemoglobin 13.7 g/dL (13.5-17.5); Lymphocytes # (auto) 1.8 10 ^3/uL (0.4-5.4); Lymphocytes % (auto) 30.7 % (10.0-50.0); Mean Corpuscular Hemoglobin 32.7 pg (28.0-32.0); Mean Corpuscular Hgb Conc. 34.4 g/dL (32.0-36.0); Monocytes # (auto) 0.6 10 ^3/uL (0-1.3); Monocytes % (auto) 10.5 % (0.0-12.0); Neutrophils # (auto) 3.4 10 ^3/uL (1.6-8.6); Neutrophils % (auto) 56.7 % (37.0-80.0); Red Blood Cells 4.18 10^6/uL (4.5-5.90); Red Cell Distribution Width 13.2 % (11.8-14.3)
[2023-05-02 06:53] LABS: BUN/Creatinine Ratio 31.1 (10.0-20.0); Calcium 8.7 mg/dL (8.5-10.1); Potassium 4.2 mmol/L (3.5-5.1)
[2023-05-02 09:16] VITALS: BP 103/46
[2023-05-02] MEDS: PATIENTS OWN MEDICATION (xarelto 20 MG) PO SCH ×2 (10:00→10:40)
[2023-05-02] MEDS: ASPirin 81 mg TAB PO SCH (10:40)
[2023-05-02] MEDS: PANTOPRAZOLE 40 MG TAB PO SCH (10:40)
[2023-05-02] MEDS: amLODIPine BESYLATE 5 MG TAB PO SCH (10:51)
[2023-05-02] MEDS: LISINOPRIL 20 MG TAB PO SCH (10:51)
[2023-05-02 12:27] VITALS: BP 101/43
[2023-05-02 12:42] VITALS: BP 132/47
== END 2023-05-02 15:42 | disposition home or self-care (01) | DRG 287 ==
LOC: EDSEX 23:18 → ER 23:18 → EDBD 23:18 → TELE 04-30 06:26 → TELE-WESTW 05-01 13:54
PROVIDERS: ADMIT Nurse Practitioner; ATTEND Internal Medicine Pulmonary Disease
PROC: 4A023N7 Measurement of Cardiac Sampling and Pressure, Left Heart, Percutaneous Approach (ICD-10-PCS; principal; 2023-05-01)
PROC: B2111ZZ Fluoroscopy of Multiple Coronary Arteries using Low Osmolar Contrast (ICD-10-PCS; 2023-05-01)
PROC: B2151ZZ Fluoroscopy of Left Heart using Low Osmolar Contrast (ICD-10-PCS; 2023-05-01)
DX: I24.9 Acute ischemic heart disease, unspecified (principal); Z68.41 Body mass index [BMI] 40.0-44.9, adult; I11.0 Hypertensive heart disease with heart failure; E11.9 Type 2 diabetes mellitus without complications; E66.01 Morbid (severe) obesity due to excess calories; I50.9 Heart failure, unspecified; Z93.0 Tracheostomy status; Z88.8 Allergy status to other drugs, medicaments and biological substances
CPT/HCPCS: 36415; 76937; 80048; 80053; 82962; 83735; 83880; 84484; 85025; 85610; 85730; 93005; 93458; 99152; 99153; C1887; C1894; G0378; J1815; J2250; Q9967

== ENCOUNTER 2024-10-12 10:33 | Inpatient (IN) | payer MEDICARE, MEDICAID ==
[2024-10-12] VITALS (7 sets, daily range): BP systolic 105–148; BP diastolic 49–86; PULSE 85–102; RESP 18–20; TEMP 98.2–98.4; O2SAT 90–98
[~2024-10-12] VITALS: Ht 165.1 cm; Wt 198.2 kg
[~2024-10-12 10:33] MED LIST changes: -DEX4T PO; -DOXY-286 PO; +FURO40TA4 PO
--- NOTE | 2024-10-12 10:58 | ED.PDOC ---
SOB-HPI HPI Comments 54 year old male presents to the ED with chief complaint of tracheostomy tube concern. Patient reports that he started to experience bleeding around his tracheostomy tube around an hour ago with associated bloody sputum, pain to tracheostomy site, redness, swelling, SOB, cough, and nausea. Patient relays that he last has his tracheostomy tube replaced at [facility] in 2019. Patient states the site has become odorous lately. Patient denies any vomiting, chest pain, dizziness, headache, hematemesis, or fever. Chief Complaint: Tube Replacement Time Seen by MD: 10:54 Primary Care Provider: RACHID Reviewed notes: Nurses Notes, Medications, Allergies Information Source: Patient, Spouse Mode of Arrival: Wheelchair Severity: Moderate Timing: Hours Duration: Since onset Context: At Rest PE Risk Factors: None History of: COPD, CHF, Other (Tracheostomy) Prehospital treatment: None Modifying Factors: Nothing Associated Signs and Symptoms: Cough If cough with SOB: Bloody Past Medical History PAST MEDICAL HISTORY: CHF, DM, High Lipids, HTN, UTI'S Surgical History (Other): Tracheostomy Family History Family History: Family hx of DM, Family hx of Cancer Social History Smoker: Non-Smoker, Quit Greater Than 1 Year Alcohol: Denies ETOH Use Drugs: Denies Drug Use Lives In: Home Constitutional: denies: chills, diaphoresis, fatigue, fever, malaise, sweats, weakness, others EENTM: denies: blurred vision, double vision, ear bleeding, ear discharge, ear drainage, ear pain, ear ringing, eye pain, eye redness, hearing loss, mouth pain, mouth swelling, nasal discharge, nose bleeding, nose congestion, nose pain, photophobia, tearing, throat pain, throat swelling, voice changes, others Respiratory: reports: cough, shortness of breath; denies: hemoptysis, orthopnea, SOB at rest, SOB with excertion, stridor, wheezing, others Cardiovascular: denies: chest pain, dizzy spells, diaphoresis, Dyspnea on exertion, edema, irregular heart beat, left arm pain, lightheadedness, palpitations, PND, syncope, others Gastrointestinal: reports: nausea; denies: abdomen distended, abdominal pain, blood streaked bowels, constipated, diarrhea, dysphagia, difficulty swallowing, hematemesis, melena, poor appetite, poor fluid intake, rectal bleeding, rectal pain, vomiting, others Genitourinary: denies: burning, dysuria, flank pain, frequency, hematuria, incontinence, penile discharge, penile sore, pain, testicle pain, testicle swelling, urgency, others Neurological: denies: dizziness, fainting, headache, left sided numbness, left sided weakness, numbness, paresthesia, pre-existing deficit, right sided numbness, right sided weakness, seizure, speech problems, tingling, tremors, weakness, others Musculoskeletal: reports: neck pain; denies: back pain, gout, joint pain, joint swelling, muscle pain, muscle stiffness, others Integumetry: reports: wounds (Redness, swelling to neck); denies: bruises, change in color, change in hair/nails, dryness, laceration, lesions, lumps, rash, others Allergic/Immunocompromised: denies: Difficulty Healing, Frequent Infections, Hives, Itching, others Hematologic/Lymphatic: denies: anemia, blood clots, easy bleeding, easy bruising, swollen glands, others Endocrine: denies: excessive hunger, excessive sweating, excessive thirst, excessive urination, flushing, intolerance to cold, intolerance to heat, unexplained weight gain, unexplained weight loss, others Psychiatric: denies: anxiety, bipolar disorder, depression, hopeless, panic disorder, schizophrenia, sleepless, suicidal, others All Other Systems: Reviewed and Negative Physical Exam General Appearance: No Apparent Distress, Obese HEENT: Other (Tracheostomy tube in place with surrounding erythema, soft tissue tenderness and dried blood on gauze dressing) Neck: Full Range of Motion, Other (No posterior midline tenderness. Trach site erythematous with soft tissue tenderness and dried blood on dressing. No acute bleeding.) Respiratory: Chest Non-Tender, Lungs Clear, No Accessory Muscle Use, No Respiratory Distress, Normal Breath Sounds Cardiovascular: No JVD, Regular Rate/Rhythm Breast Exam: Deferred Gastrointestinal: Non Tender, Soft Genitalia: Deferred Pelvic: Deferred Rectal: Deferred Extremities: Normal inspection, Normal range of motion, Non-tender Musculoskeletal : Apperance: Normal Neurologic: Alert (Oriented x4), Normal Affect, Normal Mood, Other (Moves all extremities. No gross focal deficit.) Cerebellar Function: NOT DONE Reflexes: NOT DONE Skin: Dry, Normal Color, Warm Lymphatic: NOT DONE Was a procedure done? Was a procedure done?: No Differential Dx Differential Diagnosis: Bronchitis, CHF, COPD, Pneumonia, Respiratory Distress, Other (Trach site infection, among others) X-Ray, Labs, Meds, VS Vital Signs Date Time Temp Pulse Resp B/P (MAP) Pulse Ox O2 Delivery O2 Flow Rate FiO2 10/12/24 11:41 85 20 93 Room Air* 0 21 10/12/24 11:39 18 93 Room Air* 0 21 21 10/12/24 11:34 98.2 94 20 144/93 (110) 97 98.2 10/12/24 11:34 94 20 97 Room Air 10/12/24 10:46 98.7 105 18 143/98 (113) 94 Lab Test 10/12/24 11:57 10/12/24 11:04 Range/Units Troponin I High Sensitivity 3 L < 3 L </=54 ng/L White Blood Count 7.0 4.4-10.8 10^3/uL Red Blood Count 4.69 4.5-5.90 10^6/uL Hemoglobin 15.5 13.5-17.5 g/dL Hematocrit 45.5 41.0-53.0 % Mean Corpuscular Volume 97.1 80.0-100.0 fL Mean Corpuscular Hemoglobin 33.0 H 28.0-32.0 pg Mean Corpuscular Hemoglobin Concent 33.9 32.0-36.0 g/dL Red Cell Distribution Width 13.6 11.8-14.3 % Platelet Count 220 140-450 10^3/uL Mean Platelet Volume 9.5 6.9-10.8 fL Neutrophils (%) (Auto) 74.7 37.0-80.0 % Lymphocytes (%) (Auto) 16.3 10.0-50.0 % Monocytes (%) (Auto) 7.8 0.0-12.0 % Eosinophils (%) (Auto) 1.0 0.0-7.0 % Basophils (%) (Auto) 0.2 0.0-2.0 % Neutrophils # (Auto) 5.3 1.6-8.6 10 ^3/uL Lymphocytes # (Auto) 1.1 0.4-5.4 10 ^3/uL Monocytes # (Auto) 0.6 0-1.3 10 ^3/uL Eosinophils # (Auto) 0.1 0-0.8 10 ^3/uL Basophils # (Auto) 0 0-0.2 10 ^3/uL Nucleated Red Blood Cells 0.0 % Sodium Level 139 136-145 mmol/L Potassium Level 4.0 3.5-5.1 mmol/L Chloride Level 100 98-107 mmol/L Carbon Dioxide Level 31 20-31 mmol/L Anion Gap 8 5-15 Blood Urea Nitrogen 12 9-23 mg/dL Creatinine 0.80 0.700-1.30 mg/dL Glomerular Filtration Rate Calc 105 >90 mL/min BUN/Creatinine Ratio 15.0 10.0-20.0 Serum Glucose 167 H 74-106 mg/dL Lactic Acid Level 2.2 *H 0.4-2.0 mmol/L Calcium Level 10.4 8.7-10.4 mg/dL B-Type Natriuretic Peptide 9.15 0-100 pg/mL Current Medications Medications (Trade) Dose Ordered Sig/Parker Route Start Time Stop Time Status Last Admin Ondansetron HCl (Zofran) 4 mg ONCE ONCE IV 10/12/24 11:00 10/12/24 11:01 DC 10/12/24 12:03 Albuterol (Ventolin Medneb) 5 mg ONCE ONCE NEB 10/12/24 11:00 10/12/24 11:01 DC 10/12/24 11:39 Ipratropium [place] (Atrovent Medneb) 0.5 mg ONCE ONCE NEB 10/12/24 11:00 10/12/24 11:01 DC 10/12/24 11:39 Piperacillin Sod/ Tazobactam Sod 100 ml @ 100 mls/hr ONCE ONCE IV 10/12/24 11:00 10/12/24 11:59 DC 10/12/24 12:03 Chest XR: FINDINGS: Lines and Tubes: Tracheostomy tube is noted. Lungs/Pleura: Minimal prominence of pulmonary vasculature. There is hazy opacity in the right mid/lower lung . Minimal hazy opacity of the left lung base which commonly represents atelectasis. No pneumothorax. Cardiomediastinal contours: Mild stable enlargement of the cardiac silhouette. Bones: Unremarkable IMPRESSION: 1. Tracheostomy tube is present. 2. Mild stable enlargement of the cardiac silhouette. 3. Hazy right mid / lower lung opacity is similar compared to 04/29/2023. This could represent a small pleural effusion and/or infiltrate/atelectasis. X-Ray, Labs, Meds, VS Comment 54-year-old male with a history of morbid obesity, hypertension, diabetes, dyslipidemia and CHF complaining of bleeding from his trach site, increased sputum production and shortness of breath Vitals remarkable for heart rate 105, BP 143/98, oxygen saturation 94% on room air Exam remarkable for erythema and soft tissue tenderness surrounding the trach site with dried blood on the dressing Rhythm strip independently interpreted by me: Sinus tach, rate 105, no ectopy. Chest x-ray IMPRESSION: 1. Tracheostomy tube is present. 2. Mild stable enlargement of the cardiac silhouette. 3. Hazy right mid / lower lung opacity is similar compared to 04/29/2023. This could represent a small pleural effusion and/or infiltrate/atelectasis. CBC, basic metabolic panel, BNP and 2 serial troponins unremarkable for any abnormality of acute significance Lactate 2.2 Patient treated with the following in the ED: Albuterol 5 mg/Atrovent 0.5 mg nebulized, Zofran 4 mg IV, Zosyn 4.5 g IV Plan is to admit the patient for IV antibiotics to treat a presumed tracheostomy site infection and possible pneumonia and pulmonology evaluation. Patient may require tracheostomy change. Images Reviewed?: Images reviewed and evaluated by me Time of 1ST Reevaluation: 11:54 Reevaluation 1ST: Unchanged Patient Education/Counseling: Diagnosis, Treatment, Prognosis, Need For Follow Up Family Education/Counseling: Diagnosis, Treatment, Prognosis, Need For Follow Up Departure 1 Departure Time of Disposition: 11:37 Impression: Primary Impression: Pneumonia Qualified Codes: J18.9 - Pneumonia, unspecified organism Additional Impressions: Tracheostomy hemorrhage Infection of tracheostomy Disposition: ADMITTED INPATIENT Admit to: Tele Condition: Guarded Critical Care Note Critical Care Time?: No Stability Stability form required: No Heart Score Heart Score: Heart Score Response (Comments) Value History N/A 0 EKG N/A 0 Age N/A 0 Risk Factors N/A 0 Troponin N/A 0 Total 0 I personally scribed for KEM ANTON MD ([email or web address]) on 10/12/24 at 10:58. Electronically submitted by [place] ([email or web address]). I personally scribed for KEM ANTON MD ([email or web address]) on 10/12/24 at 11:58. Electronically submitted by [place] ([email or web address]). KEM ANTON MD Oct 12, 2024 10:58
[2024-10-12 11:32] LABS: Basophils # (auto) 0 10 ^3/uL (0-0.2); Basophils % (auto) 0.2 % (0.0-2.0); Eosinophils # (auto) 0.1 10 ^3/uL (0-0.8); Hematocrit 45.5 % (41.0-53.0); Hemoglobin 15.5 g/dL (13.5-17.5); Lymphocytes # (auto) 1.1 10 ^3/uL (0.4-5.4); Lymphocytes % (auto) 16.3 % (10.0-50.0); Mean Corpuscular Hgb Conc. 33.9 g/dL (32.0-36.0); Mean Corpuscular Volume 97.1 fL (80.0-100.0); Monocytes # (auto) 0.6 10 ^3/uL (0-1.3); Monocytes % (auto) 7.8 % (0.0-12.0); Neutrophils # (auto) 5.3 10 ^3/uL (1.6-8.6); Neutrophils % (auto) 74.7 % (37.0-80.0); Platelet Count (auto) 220 10^3/uL (140-450); Red Blood Cells 4.69 10^6/uL (4.5-5.90); Red Cell Distribution Width 13.6 % (11.8-14.3)
[2024-10-12] MEDS: IPRATROPIUM BROM 0.5 MG/2.5ML INH SOL NEB ONE (11:39)
[2024-10-12] MEDS: ALBUTEROL SULF 2.5 MG/0.5ML(0.5%) NEB SOLN NEB ONE (11:39)
[2024-10-12 11:42] LABS: Chloride 100 mmol/L (98-107); Sodium 139 mmol/L (136-145)
[2024-10-12 11:43] LABS: Anion Gap 8 (5-15); Calcium 10.4 mg/dL (8.7-10.4); Carbon Dioxide 31 mmol/L (20-31)
--- NOTE | 2024-10-12 11:46 | DVH ---
CHEST RADIOGRAPH Indication: sob, bleeding from trach site Technique: Single frontal view of the chest was obtained COMPARISON: XY CHEST PORTABLE on DOS: 04/29/23 Comments: There is rightward rotation FINDINGS: Lines and Tubes: Tracheostomy tube is noted. Lungs/Pleura: Minimal prominence of pulmonary vasculature. There is hazy opacity in the right mid/low er lung . Minimal hazy opacity of the left lung base which commonly represents atelectasis. No pneum othorax. Cardiomediastinal contours: Mild stable enlargement of the cardiac silhouette. Bones: Unremarkable IMPRESSION: 1. Tracheostomy tube is present. 2. Mild stable enlargement of the cardiac silhouette. 3. Hazy right mid / lower lung opacity is similar compared to 04/29/2023. This could represent a sma ll pleural effusion and/or infiltrate/atelectasis.
[2024-10-12 11:48] LABS: Blood Urea Nitrogen 12 mg/dL (9-23)
[2024-10-12 11:49] LABS: Glucose 167 mg/dL (74-106)
[2024-10-12] MEDS: PIPERACILLIN-TAZO 4.5GM 100 ML IV ONE (12:03)
[2024-10-12] MEDS: ONDANSETRON HCL 4 MG/2 ML VIAL IV ONE (12:03)
[2024-10-12 12:04] LABS: Lactic Acid w/Reflex 2.2 mmol/L (0.4-2.0)
[2024-10-12] MEDS ORDERED: TEMAZEPAM 15 MG CAP PO PRN (13:15)
[2024-10-12] MEDS ORDERED: DOCUSATE SOD 100 MG CAP PO PRN (13:15)
[2024-10-12] MEDS ORDERED: ALBUTEROL SULF 2.5 MG/0.5ML(0.5%) NEB SOLN NEB PRN (13:15)
[2024-10-12] MEDS ORDERED: HYDROcodone-ACET 10/325MG TAB PO PRN (13:15)
[2024-10-12] MEDS ORDERED: MAALOX PLUS or MAALOX 30 ML PO PRN (13:15)
[2024-10-12] MEDS ORDERED: VANCOMYCIN PER PHARMACY 0 MG IV SCH (13:15)
[2024-10-12] MEDS ORDERED: LORazepam 0.5 MG TAB PO PRN (13:15)
[2024-10-12] MEDS ORDERED: IPRATROPIUM BROM 0.5 MG/2.5ML INH SOL NEB PRN (13:15)
[2024-10-12] MEDS ORDERED: DEXTROSE (50%) 50ML SYRG IV PRN (13:15)
[2024-10-12] MEDS ORDERED: ACETAMINOPHEN 325 MG TAB PO PRN (13:15)
[2024-10-12] MEDS ORDERED: MORPHINE SULFATE INJ 2 MG/ml SYRG IV PRN (13:15)
[2024-10-12] MEDS ORDERED: ONDANSETRON HCL 4 MG/2 ML VIAL IV PRN (13:15)
--- NOTE | 2024-10-12 13:45 | DVHHP2 ---
History of Present Illness Reason for Visit: Shortness of bread History of Present Illness 54-year-old morbidly obese patient with a history of a tracheostomy tube patient came to the ED with concerns that the tracheostomy was bleeding patient states pain at the site of the tracheostomy redness swelling shortness of breath due to the tube not working properly patient states last time this occurred he has not had the tracheostomy tube replaced this was done at [facility] about 4 years ago and now with the patient's current complaints he comes here for evaluation and tube replacement patient was recommended for inpatient evaluation Cardiovascular: CHF Review of Systems Constitutional: Yes: Fever, Weakness; No: Chills, Sweats, Malaise, Other Eyes: No: Pain, Vision change, Conjunctivae inflammation, Eyelid inflammation, Other, Redness ENT: No: Ear pain, Ear discharge, Nose pain, Nose discharge, Nose congestion, Mouth pain, Mouth swelling, Throat pain, Throat swelling, Other Respiratory: Cough, Shortness of breath, SOB with excertion; No: Dry, Wheezing, Hemoptysis, Pleuritic Pain, Sputum, Wheezing, Other Cardiovascular: No: Chest Pain, Palpitations, Orthopnea, Paroxysmal Noc. Dyspnea, Edema, Lt Headedness, Other Gastrointestinal: No: Nausea, Vomiting, Abdominal Pain, Diarrhea, Constipation, Melena, Hematochezia, Other Genitourinary: No Dysuria, No Frequency, No Incontinence, No Hematuria, No Retention, No Other Musculoskeletal: No: other, neck pain, shoulder pain, arm pain, back pain, hand pain, leg pain, foot pain Skin: No: Rash, Lesions, Jaundice, Bruising, Other Neurological: No: Weakness, Numbness, Incoordination, Change in speech, C onfusion, Seizures, Other Allergies: Coded Allergies: Levofloxacin (Verified Adverse Reaction, Mild, ITCHING, 09/24/15) User: Anastacia Robles RN Date: 09/23/15 18:47 Type: Emergency Department Notes BENADRYL 25 MG GIVEN FOR ITCHING, PT RESTING WITH EYES CLOSED User: Anastacia Robles RN Date: 09/23/15 18:15 Type: Emergency Department Notes PT STATES THAT SINCE THE LEVIQUN STARTED THAT HIS ARM IS "ITCHY". IV MEDS DC'D @ THIS TIME. MD KAPOOR AWARE, NEW ORDERS RECIEVED Medications Current Medications Medications Dose Ordered Sig/Parker Route Start Time Stop Time Status Last Admin Dose Admin Vancomycin HCl 0 ml @ 0 mls/hr UD IV 10/12/24 13:15 UNV Piperacillin Sod/ Tazobactam Sod 100 ml @ 100 mls/hr Q8HR IV 10/12/24 14:00 UNV Albuterol 2.5 mg Q4HPRN PRN NEB 10/12/24 13:15 UNV Ipratropium Lee 0.5 mg Q4HPRN PRN NEB 10/12/24 13:15 UNV Aspirin 81 mg DAILY PO 10/13/24 10:00 UNV Acetaminophen/ Hydrocodone Bitart 1 tab Q4HP PRN PO 10/12/24 13:15 UNV Lisinopril 20 mg DAILY PO 10/13/24 10:00 UNV Rivaroxaban 20 mg DAILY PO 10/13/24 10:00 UNV Patient Own Medication 1 tab DAILY PO 10/13/24 10:00 UNV Patient Own Medication 1,000 mg DAILY PO 10/13/24 10:00 UNV Patient Own Medication 1 cap DAILY PO 10/13/24 10:00 UNV Patient Own Medication 220 mg DAILY PO 10/13/24 10:00 UNV Furosemide 40 mg BID IV 10/12/24 22:00 UNV Diagnostic Test (Pha) 1 strip IQ4HR 10/12/24 16:00 UNV Insulin Human Regular IQ4HR SC 10/12/24 16:00 UNV Dextrose 50 ml UD PRN IV 10/12/24 13:15 UNV Sodium Chloride 1,000 ml @ 100 mls/hr Q10H IV 10/12/24 13:15 UNV Lorazepam 0.5 mg Q6HP PRN PO 10/12/24 13:15 UNV Al Hydrox/Mg Hydrox/Simethicone 30 ml Q6HP PRN PO 10/12/24 13:15 UNV Docusate Sodium 100 mg BIDPRN PRN PO 10/12/24 13:15 UNV Acetaminophen 650 mg Q6HP PRN PO 10/12/24 13:15 UNV Temazepam 15 mg QHSP PRN PO 10/12/24 13:15 UNV Acetaminophen/ Hydrocodone Bitart 1 tab Q4HP PRN PO 10/12/24 13:15 UNV Ondansetron HCl 4 mg Q4HP PRN IV 10/12/24 13:15 UNV Morphine Sulfate 2 mg Q4HPRN PRN IV 10/12/24 13:15 UNV Exam Vital Signs Vital Signs Date Time Temp Pulse Resp B/P (MAP) Pulse Ox O2 Delivery O2 Flow Rate FiO2 10/12/24 11:41 85 20 93 Room Air* 0 21 10/12/24 11:34 98.2 144/93 (110) 98.2 General Appearance: Alert, Oriented X3, moderate distress HEENT: Atraumatic, PERRLA Respiratory: Clear to auscultation (Mild bilateral wheezing), Normal air movement Cardiovascular: Regular rate, Normal S1, Normal S2 Abdominal: Normal bowel sounds, Soft Extremities: No clubbing, No cyanosis Skin: No rashes, No breakdown Neuro: Normal gait, Normal speech Psych/Mental Status: Mood NL Labs/Xrays Labs Test 10/12/24 11:57 10/12/24 11:04 Range/Units Troponin I High Sensitivity 3 L </=54 ng/L White Blood Count 7.0 4.4-10.8 10^3/uL Red Blood Count 4.69 4.5-5.90 10^6/uL Hemoglobin 15.5 13.5-17.5 g/dL Hematocrit 45.5 41.0-53.0 % Mean Corpuscular Volume 97.1 80.0-100.0 fL Mean Corpuscular Hemoglobin 33.0 H 28.0-32.0 pg Mean Corpuscular Hemoglobin Concent 33.9 32.0-36.0 g/dL Red Cell Distribution Width 13.6 11.8-14.3 % Platelet Count 220 140-450 10^3/uL Mean Platelet Volume 9.5 6.9-10.8 fL Neutrophils (%) (Auto) 74.7 37.0-80.0 % Lymphocytes (%) (Auto) 16.3 10.0-50.0 % Monocytes (%) (Auto) 7.8 0.0-12.0 % Eosinophils (%) (Auto) 1.0 0.0-7.0 % Basophils (%) (Auto) 0.2 0.0-2.0 % Neutrophils # (Auto) 5.3 1.6-8.6 10 ^3/uL Lymphocytes # (Auto) 1.1 0.4-5.4 10 ^3/uL Monocytes # (Auto) 0.6 0-1.3 10 ^3/uL Eosinophils # (Auto) 0.1 0-0.8 10 ^3/uL Basophils # (Auto) 0 0-0.2 10 ^3/uL Nucleated Red Blood Cells 0.0 % Sodium Level 139 136-145 mmol/L Potassium Level 4.0 3.5-5.1 mmol/L Chloride Level 100 98-107 mmol/L Carbon Dioxide Level 31 20-31 mmol/L Anion Gap 8 5-15 Blood Urea Nitrogen 12 9-23 mg/dL Creatinine 0.80 0.700-1.30 mg/dL Glomerular Filtration Rate Calc 105 >90 mL/min BUN/Creatinine Ratio 15.0 10.0-20.0 Serum Glucose 167 H 74-106 mg/dL Lactic Acid Level 2.2 *H 0.4-2.0 mmol/L Calcium Level 10.4 8.7-10.4 mg/dL B-Type Natriuretic Peptide 9.15 0-100 pg/mL Assessment/Plan Assessment/Plan Admit to tele Suspected her probable pneumonia associated with tracheostomy Tracheostomy with hemorrhage present Possible infected tracheostomy tube IV hydration IV antibiotics P.r.n. breathing treatments B.i.d. steroids Pulmonary evaluation for possible tracheostomy replacement History of diabetes We will go with insulin sliding scale moderate to aggressive History of CHF with mild signs of fluid overload We will continue with home medications IV Lasix b.i.d. History of hypertension History of UTIs UA currently pending We will continue with antibiotics with the treatment of suspected pneumonia These antibiotics we will also cover for urinary tract infection We will continue with patient's home medications for management of blood pressure Case complicated by severe morbid obesity BMI greater than 65 Plan discussed with: Patient My Orders Orders - FELICITA FRITZ MD Procedure Category Date Status Time Vancomycin Per PHA 10/12/24 Logged Pharmacy 13:15 Piperacillin-Tazob PHA 10/12/24 Logged 3.375gm (Zosyn 3.375g 14:00 Albuterol Medneb PHA 10/12/24 Logged (Ventolin Medneb) 13:15 Ipratropium Medneb PHA 10/12/24 Logged (Atrovent Medneb) 13:15 Inline Breath RT 10/12/24 Logged Treatment 13:07 Aspirin Enteric PHA 10/13/24 Logged Coated Tablet 10:00 Hydrocodone-Acet PHA 10/12/24 Logged 10/325mg Tab (Corona 13:15 Lisinopril Tablet PHA 10/13/24 Logged (Zestril Tablet) 10:00 Rivaroxaban Tablet PHA 10/13/24 Logged (Xarelto Tablet) 10:00 (Nf) Amlodipine PHA 10/13/24 Logged Besylate 10:00 (Nf) Ascorbic Acid PHA 10/13/24 Logged (Gnp Vitamin C W/Marjorie 10:00 (Nf) Fenofibrate PHA 10/13/24 Logged (Fenofibrate 10:00 (Nf) Zinc Sulfate PHA 10/13/24 Logged 10:00 Furosemide Injection PHA 10/12/24 Logged (Lasix Injection) 22:00 Glucose Blood PHA 10/12/24 Logged (Accu-Chek Comfort 16:00 Insulin R (Human) PHA 10/12/24 Logged (Insulin R) 16:00 Dextrose 50% Syringe PHA 10/12/24 Logged 13:15 Admit ADMIT 10/12/24 Transmitted 13:07 Code Status CODE 10/12/24 Transmitted 13:07 Vital Signs [facility] 10/12/24 In Process 13:07 Review Orders With [facility] 10/12/24 In Process Adm. 13:07 Consistent DIET 10/12/24 Transmitted Carb(Ccho)Diabetes Lunch Sodium Chloride 0.9% PHA 10/12/24 Logged 13:15 Lorazepam Tablet PHA 10/12/24 Logged (Ativan Tablet) 13:15 Alum & Mag PHA 10/12/24 Logged Hydrox-Simethicone 13:15 Docusate Sodium PHA 10/12/24 Logged Capsule (Colace 13:15 Acetaminophen Tablet PHA 10/12/24 Logged (Tylenol Tablet) 13:15 Temazepam (Restoril) PHA 10/12/24 Logged 13:15 Notify Md Of Changes [facility] 10/12/24 In Process From Base 13:07 Advance Directive [facility] 10/12/24 In Process 13:07 Basic Metabolic Panel LAB 10/12/24 Logged 13:07 Complete Blood Count LAB 10/12/24 Logged 13:07 Patient Condition ORDERS 10/12/24 Transmitted 13:07 Allergies [facility] 10/12/24 In Process 13:07 Hydrocodone-Acet PHA 10/12/24 Logged 5/325mg Tab ([place] 13:15 Ondansetron Hcl PHA 10/12/24 Logged (Zofran) 13:15 Morphine Sulfate PHA 10/12/24 Logged Injection 13:15 Oxygen By Nasal RT 10/12/24 Transmitted Cannula 13:07 Notify Of Changes [facility] 10/12/24 In Process From Base 13:07 Problem List: (1) Pneumonia (2) Infection of tracheostomy (3) Tracheostomy hemorrhage (4) Chest pain (5) Dyspnea due to congestive heart failure (6) Acute respiratory distress (7) Morbid obesity Date of Service: Oct 12, 2024 Billing Provider: FELICITA FRITZ MD Common Visit Codes: [id number] INP/OBS CARE (HIGH) FELICITA FRITZ MD Oct 12, 2024 13:45
[2024-10-12 14:54] LABS: Basophils # (auto) 0 10 ^3/uL (0-0.2); Basophils % (auto) 0.3 % (0.0-2.0); Eosinophils # (auto) 0 10 ^3/uL (0-0.8); Eosinophils % (auto) 0.4 % (0.0-7.0); Hematocrit 43.1 % (41.0-53.0); Hemoglobin 14.9 g/dL (13.5-17.5); Lymphocytes # (auto) 1.2 10 ^3/uL (0.4-5.4); Lymphocytes % (auto) 14.8 % (10.0-50.0); Mean Corpuscular Hemoglobin 33.2 pg (28.0-32.0); Mean Corpuscular Hgb Conc. 34.5 g/dL (32.0-36.0); Mean Corpuscular Volume 96.1 fL (80.0-100.0); Monocytes # (auto) 0.7 10 ^3/uL (0-1.3); Monocytes % (auto) 8.4 % (0.0-12.0); Neutrophils # (auto) 6.2 10 ^3/uL (1.6-8.6); Neutrophils % (auto) 76.1 % (37.0-80.0); Nucleated Red Blood Cells % 0.1 %; Platelet Count (auto) 213 10^3/uL (140-450); Red Blood Cells 4.49 10^6/uL (4.5-5.90); Red Cell Distribution Width 13.3 % (11.8-14.3); White Blood Cell 8.1 10^3/uL (4.4-10.8)
[2024-10-12 15:03] LABS: Chloride 102 mmol/L (98-107); Sodium 139 mmol/L (136-145)
[2024-10-12 15:04] LABS: Anion Gap 6 (5-15); Carbon Dioxide 31 mmol/L (20-31)
[2024-10-12 15:05] LABS: Calcium 10.2 mg/dL (8.7-10.4)
[2024-10-12 15:09] LABS: BUN/Creatinine Ratio 16.9 (10.0-20.0); Blood Urea Nitrogen 14 mg/dL (9-23)
[2024-10-12] MEDS: PIPERACILLIN-TAZOB 3.375GM 100 ML IV SCH (15:09)
[2024-10-12 15:10] LABS: Glucose 141 mg/dL (74-106)
[2024-10-12] MEDS: VANCOMYCIN 1GM/250ML KIT 250 ML IV SCH (15:45)
[2024-10-12] MEDS: SODIUM CHLORIDE 0.9% 1,000 ML IV SCH (15:58)
[2024-10-12] MEDS: ACCU-CHEK COMFORT CURVE STRIP VI SCH (16:00)
[2024-10-12] MEDS: InsuLIN REG 1unit/0.01ml Soln (100units/ml) SC SCH (16:00)
[2024-10-12] MEDS: FUROSEMIDE 40 MG/4 ML VIAL IV SCH (18:00)
[2024-10-12] MEDS ORDERED: PIOG1TAB37 PO (18:53)
[2024-10-12] MEDS ORDERED: METF-370 PO (18:53)
[2024-10-12] MEDS ORDERED: VANCOMYCIN 1GM/250ML KIT 250 ML IV ONE ×2 (20:42→22:09)
[2024-10-12] MEDS: HYDROcodone-ACET 5/325MG TAB PO PRN (20:56)
[2024-10-13] VITALS (8 sets, daily range): BP systolic 96–122; BP diastolic 44–66; PULSE 72–83; RESP 17–19; TEMP 98–99.5; O2SAT 97–100
[2024-10-13] MEDS: ASPirin-EC 81 mg tab PO SCH (08:31)
[2024-10-13] MEDS: LISINOPRIL 20 MG TAB PO SCH (08:32)
[2024-10-13] MEDS: amLODIPine BESYLATE 5 MG TAB PO SCH (08:32)
[2024-10-13] MEDS: ZINC SULFATE 220mg CAP or TAB PO SCH (08:36)
[2024-10-13] MEDS: ASCORBIC ACID 1000 MG PO SCH (08:37)
[2024-10-13] MEDS: FENOFIBRATE 200 MG PO SCH (08:37)
[2024-10-13] MEDS: RIVAROXABAN 20 MG TAB PO SCH (08:37)
--- NOTE | 2024-10-13 11:12 | DVHPN2 ---
Subjective Patient denies any fevers, chills, body aches. Does report having foul-smelling odor from tracheostomy. Denies any further bleeding from tracheostomy site Reviewed: Care Plan, H&P, Labs, Medications Changes from previous H/P or p: No Changes General: Per HPI Eyes: No Pain, No Vision change, No Conjunctivae inflammation, No Eyelid inflammation, No Other, No Redness ENT: No Ear pain, No Ear discharge, No Nose pain, No Nose discharge, No Nose congestion, No Mouth pain, No Mouth swelling, No Throat pain, No Throat swelling, No Other Cardiovascular: No Chest Pain, No Palpitations, No Orthopnea, No Paroxysmal Noc. Dyspnea, No Edema, No Lt Headedness, No Other Respiratory: Cough; No Dry; Shortness of breath, SOB with excertion; No Wheezing, No Hemoptysis, No Pleuritic Pain, No Sputum, No Other Gastrointestinal: No Nausea, No Vomiting, No Abdominal Pain, No Diarrhea, No Constipation, No Melena, No Hematochezia, No Other Genitourinary: No Dysuria, No Frequency, No Incontinence, No Hematuria, No Retention, No Other Musculoskeletal: No other, No neck pain, No shoulder pain, No arm pain, No back pain, No hand pain, No leg pain, No foot pain Skin: No Rash, No Lesions, No Jaundice, No Bruising, No Other Objective Vitals Vital Signs Date Time Temp Pulse Resp B/P (MAP) Pulse Ox O2 Delivery O2 Flow Rate FiO2 10/13/24 09:00 98.6 80 18 104/45 (64) 100 98.6 10/13/24 08:29 Trach Collar 5.0 10/13/24 08:29 N/A Intake/Output Intake and Output 10/13/24 07:00 Intake Total 1400 ml Balance 1400 ml Intake Oral 700 ml IV Total 700 ml # Voids 1 General Appearance: Alert, Oriented X3, Cooperative, No acute distress, Other (Morbidly obese) HEENT: Atraumatic, PERRLA Neck: Other (Tracheostomy) Lungs: Other (Decreased breath sounds in bases) Cardiovascular: Normal S1, Normal S2 Genitourinary: No Apparent Abnormalities Musculoskeletal: Normal sensory function, Normal motor function Psych/Mental Status: Mental status NL, Mood NL Medications Current Medications Medications Dose Ordered Sig/Parker Route Start Time Stop Time Status Last Admin Dose Admin Vancomycin HCl 0 ml @ 0 mls/hr UD IV 10/12/24 13:15 Piperacillin Sod/ Tazobactam Sod 100 ml @ 100 mls/hr Q6HR IV 10/12/24 14:00 10/13/24 06:11 100 MLS/HR Albuterol 2.5 mg Q4HPRN PRN NEB 10/12/24 13:15 Ipratropium Rozel 0.5 mg Q4HPRN PRN NEB 10/12/24 13:15 Aspirin 81 mg DAILY PO 10/13/24 10:00 10/13/24 08:31 81 MG Acetaminophen/ Hydrocodone Bitart 1 tab Q4HP PRN PO 10/12/24 13:15 Hold Lisinopril 20 mg DAILY PO 10/13/24 10:00 10/13/24 08:32 20 MG Rivaroxaban 20 mg DAILY PO 10/13/24 10:00 Amlodipine Besylate 10 mg DAILY PO 10/13/24 10:00 10/13/24 08:32 10 MG Patient Own Medication 1,000 mg DAILY PO 10/13/24 10:00 Patient Own Medication 1 cap DAILY PO 10/13/24 10:00 Zinc Sulfate 220 mg DAILY PO 10/13/24 10:00 Furosemide 40 mg BIDD IV 10/12/24 18:00 10/13/24 06:09 40 MG Diagnostic Test (Pha) 1 strip IQ4HR 10/12/24 16:00 10/13/24 08:00 1 STRIP Insulin Human Regular IQ4HR SC 10/12/24 16:00 10/13/24 08:36 4 UNITS Dextrose 50 ml UD PRN IV 10/12/24 13:15 Sodium Chloride 1,000 ml @ 100 mls/hr Q10H IV 10/12/24 13:15 Lorazepam 0.5 mg Q6HP PRN PO 10/12/24 13:15 Al Hydrox/Mg Hydrox/Simethicone 30 ml Q6HP PRN PO 10/12/24 13:15 Docusate Sodium 100 mg BIDPRN PRN PO 10/12/24 13:15 Acetaminophen 650 mg Q6HP PRN PO 10/12/24 13:15 Temazepam 15 mg QHSP PRN PO 10/12/24 13:15 Acetaminophen/ Hydrocodone Bitart 1 tab Q4HP PRN PO 10/12/24 13:15 10/13/24 06:23 1 TAB Ondansetron HCl 4 mg Q4HP PRN IV 10/12/24 13:15 Morphine Sulfate 2 mg Q4HPRN PRN IV 10/12/24 13:15 Laboratory Results Laboratory Tests 10/12/24 14:37 Chemistry Test 10/12/24 14:37 Calcium Level 10.2 mg/dL (8.7-10.4) Labs and/or images reviewed: Labs reviewed by me, Image(s) reviewed by me Assessment/Plan Assessment/Plan Impression: -acute on chronic hypoxic respiratory failure with oxygen saturation 96% on 6 L blow-by -? Right middle lobe atelectasis versus community-acquired pneumonia, probable Gram-positive/Gram-negative etiology -morbid obesity -chronic tracheostomy Plan: -continue antibiotic therapy with Zosyn and vancomycin -culture tracheostomy site -monitor for bleeding -continue O2 supplementation -discussion made with the patient to change position as he favors lying on right side -lifestyle modification education: 10 minutes spent with the need to continue current weight loss Plan -repeat labs, chest x-ray in a.m. Total time spent with patient discussing and formulating plan of care: 35 minutes. This medical document was created using an electronic medical record system with Omnistream dictation system. Although this document has been carefully reviewed, there may still be some phonetic and typographical errors. These areas are purely typographical due to imperfections of the software programs, and do not reflect any compromise in the patient's medical care. Plan discussed with: Patient, Other (RN) My Orders Orders - GÉNESIS MONTESINOS NP Procedure Category Date Status Time Chest Portable XY 10/14/24 Logged 04:00 Date of Service: Oct 13, 2024 Billing Provider: GÉNESIS MONTESINOS NP Common Visit Codes: [id number] INP/OBS CARE(HIGH) GÉNESIS MONTESINOS NP Oct 13, 2024 11:12
[2024-10-13] MEDS: PIPERACILLIN-TAZOB 3.375GM 100 ML IV SCH (17:42)
--- NOTE | 2024-10-13 19:52 | DVHINCON2 ---
Date of service: Oct 12, 2024 Referring Physician Ebenezer Limon NP Reason for Consultation Bleeding from tracheostomy, possible pneumonia. History of Present Illness A 54-year-old morbidly obese patient with PMHx of diabetes mellitus, congestive heart failure, hypertension, history of UTIs, and tracheostomy tube placement, wheelchair bound, who presented to the ED today with concerns that his tracheostomy is bleeding. Patient reports pain at the site of the tracheostomy with redness, swelling. Admits to shortness of breath due to the tube not working properly. Patient states last time when this occurred, he has not had the tracheostomy tube replaced. Of note, this was done at [facility] about 4 years ago. Patient was admitted for further care and pulmonary consultation is requested for evaluation and management due to the above findings. Review of Systems: 14-point review of systems negative unless otherwise noted above. Past Medical History: Diabetes mellitus, congestive heart failure, hypertension, history of UTIs, wheelchair bound. Past Surgical History: Tracheostomy at [facility] in approximately 2019. Medications: Reviewed. Allergies: Levofloxacin. Family History: Prostate cancer, DM, arthritis. Social History: Nonsmoker. No alcohol or illicit drug use. Wheelchair bound. Family History: Cancer G8 FATHER (PROSTATE) GRANDFATHER (PROSTATE) AUNT Family history: Arthritis GRANDMA Family history: Diabetes mellitus G8 FATHER Allergies: Coded Allergies: Levofloxacin (Verified Adverse Reaction, Mild, ITCHING, 09/24/15) User: Anastacia Robles RN Date: 09/23/15 18:47 Type: Emergency Department Notes BENADRYL 25 MG GIVEN FOR ITCHING, PT RESTING WITH EYES CLOSED User: Anastacia Robles RN Date: 09/23/15 18:15 Type: Emergency Department Notes PT STATES THAT SINCE THE LEVIQUN STARTED THAT HIS ARM IS "ITCHY". IV MEDS DC'D @ THIS TIME. MD ANTWON GOLDEN, NEW ORDERS RECIEVED Home Meds Active Scripts Amoxicillin & Pot Clavulanate (AUGMENTIN TABLET) 875 Mg Tb, 875 MG PO BID for 7 Days, #14 TAB Prov:EBENEZER LIMON [employer] 10/14/24 Reported Medications Furosemide (Furosemide) 40 Mg Tab, 1 TAB PO BID for 30 Days, #60 10/14/24 Pioglitazone Hydrochloride (PIOGLITAZONE HCL) 30 Mg Tab, 1 TAB PO DAILY 10/12/24 Metformin Hydrochloride (Metformin Hcl) 500 Mg Tab, 1 TAB PO BID 10/12/24 Nitroglycerin (Nitrostat) 0.4 Mg Sub, 0.4 MG SL PRN PRN for FOR CHEST PAIN for 30 Days, INJ 12/02/21 Amlodipine Besylate (Amlodipine Besylate) 10 Mg Tab, 1 TAB PO DAILY, #30 TAB 5 Refills 12/02/21 Hydrocodone-Acetaminophen (Hydrocodone/Acetaminophen 10-325 mg) 1 Tab Tab, 1 TAB PO Q4HP PRN for PAIN, TAB 12/02/21 Aspirin (Aspir-Low) 81 Mg Tab, 81 MG PO DAILY for 30 Days, MG 12/01/21 Lisinopril (Lisinopril) 20 Mg Tab, 1 TAB PO DAILY, #30 TAB 5 Refills 12/01/21 Fenofibrate (Fenofibrate Micronized) 200 Mg Cap, 1 CAP PO DAILY, #30 CAP 5 Refills 12/01/21 Discontinued Reported Medications Furosemide (Furosemide) 80 Mg Tab, 1 TAB PO DAILYP, #30 TAB 5 Refills 12/02/21 Current Medications Current Medications Medications (Trade) Dose Ordered Sig/Parker Route PRN Reason Start Time Stop Time Status Last Admin Aspirin (Ecotrin Enteric Coated Tablet) 81 mg DAILY PO 10/13/24 10:00 10/13/24 08:31 Lisinopril (Zestril Tablet) 20 mg DAILY PO 10/13/24 10:00 10/13/24 08:32 Rivaroxaban (Xarelto Tablet) 20 mg DAILY PO 10/13/24 10:00 Amlodipine Besylate (Norvasc Tablet) 10 mg DAILY PO 10/13/24 10:00 10/13/24 08:32 Patient Own Medication 1,000 mg DAILY PO 10/13/24 10:00 Patient Own Medication 1 cap DAILY PO 10/13/24 10:00 Zinc Sulfate 220 mg DAILY PO 10/13/24 10:00 Vancomycin HCl 300 ml @ 200 mls/hr Q12H IV 10/13/24 19:00 Piperacillin Sod/ Tazobactam Sod 100 ml @ 25 mls/hr Q6HR IV 10/13/24 18:00 10/13/24 17:42 Vital Signs Vital Signs Date Time Temp Pulse Resp B/P (MAP) Pulse Ox O2 Delivery O2 Flow Rate FiO2 10/13/24 17:41 115/61 10/13/24 17:00 99.1 81 18 98 99.1 10/13/24 08:29 Trach Collar 5.0 10/13/24 08:29 N/A Physical Exam Gen.: Patient lying in bed in no apparent distress. Breathing on room air. Trach in place. Head: Normocephalic, atraumatic. Eyes: EOMI/PERRLA. Ears: Normal hearing. Normal anatomy. Neck/trachea: Trach in place. Nose: Normal external anatomy. Mouth: Moist mucous membranes. Chest: Decreased air entry bilaterally. No wheezing or rhonchi. Cardiovascular: Positive S1, positive S2. Regular rate and rhythm. Abdomen: Positive bowel sounds in all 4 quadrants. Soft, non-tender, non- distended. : Deferred. Rectal: Deferred. Skin: Warm, dry. Intact. Extremities: 2+ radial pulses bilaterally. No lower extremity edema. Neuro: Awake, alert, oriented x3. No gross motor or sensory deficits. Cranial nerves II through XII intact. Patient is wheelchair bound. Labs/Diagnostic Data Labs Test 10/13/24 17:00 10/12/24 14:37 10/12/24 11:04 Range/Units POC Glucose 108 H 70-106 mg/dl White Blood Count 8.1 4.4-10.8 10^3/uL Red Blood Count 4.49 L 4.5-5.90 10^6/uL Hemoglobin 14.9 13.5-17.5 g/dL Hematocrit 43.1 41.0-53.0 % Mean Corpuscular Volume 96.1 80.0-100.0 fL Mean Corpuscular Hemoglobin 33.2 H 28.0-32.0 pg Mean Corpuscular Hemoglobin Concent 34.5 32.0-36.0 g/dL Red Cell Distribution Width 13.3 11.8-14.3 % Platelet Count 213 140-450 10^3/uL Mean Platelet Volume 9.7 6.9-10.8 fL Neutrophils (%) (Auto) 76.1 37.0-80.0 % Lymphocytes (%) (Auto) 14.8 10.0-50.0 % Monocytes (%) (Auto) 8.4 0.0-12.0 % Eosinophils (%) (Auto) 0.4 0.0-7.0 % Basophils (%) (Auto) 0.3 0.0-2.0 % Neutrophils # (Auto) 6.2 1.6-8.6 10 ^3/uL Lymphocytes # (Auto) 1.2 0.4-5.4 10 ^3/uL Monocytes # (Auto) 0.7 0-1.3 10 ^3/uL Eosinophils # (Auto) 0 0-0.8 10 ^3/uL Basophils # (Auto) 0 0-0.2 10 ^3/uL Nucleated Red Blood Cells 0.1 % Sodium Level 139 136-145 mmol/L Potassium Level 4.0 3.5-5.1 mmol/L Chloride Level 102 98-107 mmol/L Carbon Dioxide Level 31 20-31 mmol/L Anion Gap 6 5-15 Blood Urea Nitrogen 14 9-23 mg/dL Creatinine 0.83 0.700-1.30 mg/dL Glomerular Filtration Rate Calc 104 >90 mL/min BUN/Creatinine Ratio 16.9 10.0-20.0 Serum Glucose 141 H 74-106 mg/dL Lactic Acid Level 1.6 0.4-2.0 mmol/L Calcium Level 10.2 8.7-10.4 mg/dL Troponin I High Sensitivity 3 L </=54 ng/L B-Type Natriuretic Peptide 9.15 0-100 pg/mL Assessment Impression: Tracheostomy with hemorrhage Possible pneumonia associated with tracheostomy Congestive heart failure DM type II Hypertension Hx of urinary tract infections. Morbid obesity BMI 72.7 Atelectasis Plan: CXR shows tracheostomy tube present. Mild stable enlargement of the cardiac silhouette. Hazy right mid/lower lung opacity is similar compared to 04/29/2023. This could represent a small pleural effusion and/or infiltrate/atelectasis. Trach care Pulmonary toileting IV antibiotics PRN breathing treatments Continue steroids Antihypertensive medications IV fluid hydration Accu-Cheks, insulin sliding scale PRN. F/u Cardiology recs Pain control Avoid oversedation Diurese w/ IV Lasix BID. Monitor renal function. Monitor electrolytes. Supplement as necessary. Monitor ins and outs. Diet and lifestyle modifications for weight reduction Morbid obesity - complicates all care Prognosis: Poor given patient's multiple co-morbidities. Condition: Critical Rest of plan per hospitalist and other consultants. A total of 35 minutes of critical care time was spent reviewing the patient record, examining the patient, making a diagnostic and therapeutic plan, discu ssing this plan with the medical personnel, following up on diagnostic studies and following the patient for clinical stability excluding any and all procedures. At least 50% of this time was spent in direct, [id number] contact. Thank you, Ebenezer Limon NP, for allowing me to participate in this patient's care. Further recommendations will depend on the patient's clinical course. Please do not hesitate to contact me if you have any questions or concerns. This medical document was created using an electronic medical record system with [employer] dictation system. Although these documentations are being carefully reviewed, there may still be some phonetic and typographical changes. The errors are purely typographical, due to imperfection on the software program, and do not reflect any compromise in the patient's medical care. Plan discussed with: Patient, Other (RN/INGRID Limon) AIMEE LOWE MD Oct 13, 2024 19:52
[2024-10-13] MEDS: VANCOMYCIN 1.5GM/300ML 300 ML IV SCH (22:15)
--- NOTE | 2024-10-13 22:31 | DVHPN2 ---
Progress Note - Dictate Date Seen: Oct 13, 2024 Medical Necessity Reason Pt with a Central, PICC or Fol: No Subjective Patient seen and examined at bedside. On supplemental oxygen, trach collar in place. Overnight events reviewed. vital signs Vital Sign Date Time Temp Pulse Resp B/P (MAP) Pulse Ox O2 Delivery O2 Flow Rate FiO2 10/13/24 17:41 115/61 10/13/24 17:00 99.1 81 18 98 99.1 10/13/24 08:29 Trach Collar 5.0 10/13/24 08:29 N/A Total Intake and Output 10/12/24 10/12/24 10/13/24 15:00 23:00 07:00 Intake Total 350 ml 1050 ml Balance 350 ml 1050 ml medications Current Medications Medications Dose Ordered Sig/Parker Route Start Time Stop Time Status Last Admin Dose Admin Vancomycin HCl 0 ml @ 0 mls/hr UD IV 10/12/24 13:15 Albuterol 2.5 mg Q4HPRN PRN NEB 10/12/24 13:15 Ipratropium Crane 0.5 mg Q4HPRN PRN NEB 10/12/24 13:15 Aspirin 81 mg DAILY PO 10/13/24 10:00 10/13/24 08:31 81 MG Acetaminophen/ Hydrocodone Bitart 1 tab Q4HP PRN PO 10/12/24 13:15 Hold Lisinopril 20 mg DAILY PO 10/13/24 10:00 10/13/24 08:32 20 MG Rivaroxaban 20 mg DAILY PO 10/13/24 10:00 Amlodipine Besylate 10 mg DAILY PO 10/13/24 10:00 10/13/24 08:32 10 MG Patient Own Medication 1,000 mg DAILY PO 10/13/24 10:00 Patient Own Medication 1 cap DAILY PO 10/13/24 10:00 Zinc Sulfate 220 mg DAILY PO 10/13/24 10:00 Furosemide 40 mg BIDD IV 10/12/24 18:00 10/13/24 17:41 40 MG Diagnostic Test (Pha) 1 strip IQ4HR 10/12/24 16:00 10/13/24 17:23 1 STRIP Insulin Human Regular IQ4HR SC 10/12/24 16:00 10/13/24 11:16 4 UNITS Dextrose 50 ml UD PRN IV 10/12/24 13:15 Sodium Chloride 1,000 ml @ 100 mls/hr Q10H IV 10/12/24 13:15 Lorazepam 0.5 mg Q6HP PRN PO 10/12/24 13:15 Al Hydrox/Mg Hydrox/Simethicone 30 ml Q6HP PRN PO 10/12/24 13:15 Docusate Sodium 100 mg BIDPRN PRN PO 10/12/24 13:15 Acetaminophen 650 mg Q6HP PRN PO 10/12/24 13:15 Temazepam 15 mg QHSP PRN PO 10/12/24 13:15 Acetaminophen/ Hydrocodone Bitart 1 tab Q4HP PRN PO 10/12/24 13:15 10/13/24 17:50 1 TAB Ondansetron HCl 4 mg Q4HP PRN IV 10/12/24 13:15 Morphine Sulfate 2 mg Q4HPRN PRN IV 10/12/24 13:15 Vancomycin HCl 300 ml @ 200 mls/hr Q12H IV 10/13/24 19:00 Piperacillin Sod/ Tazobactam Sod 100 ml @ 25 mls/hr Q6HR IV 10/13/24 18:00 10/13/24 17:42 25 MLS/HR objective Gen.: Patient lying in bed in no apparent distress. On supplemental oxygen. S/p trach, trach collar in place. Head: Normocephalic, atraumatic. Eyes: EOMI/PERRLA. Ears: Normal hearing. Normal anatomy. Neck/trachea: Trach in place. Nose: Normal external anatomy. Mouth: Moist mucous membranes. Chest: Decreased air entry bilaterally. No wheezing or rhonchi. Cardiovascular: Positive S1, positive S2. Regular rate and rhythm. Abdomen: Positive bowel sounds in all 4 quadrants. Soft, non-tender, non- distended. : Deferred. Rectal: Deferred. Skin: Warm, dry. Intact. Extremities: 2+ radial pulses bilaterally. No lower extremity edema. Neuro: Awake, alert, oriented x3. No gross motor or sensory deficits. Cranial nerves II through XII intact. Patient is wheelchair bound. laboratory and microbiology Laboratory Tests 10/12/24 14:37 Test 10/12/24 14:37 Range/Units Serum Glucose 141 H 74-106 mg/dL Assessment/Plan Impression: Tracheostomy with hemorrhage Congestive heart failure DM type II Hypertension Hx of urinary tract infections. Morbid obesity Acute on chronic hypoxic respiratory failure ? Right middle lobe atelectasis versus community-acquired pneumonia, probable Gram-positive/Gram-negative etiology Events: No further hemoptysis Feeling better Improve erythema around trach site Continue IV abx Rec f/u with ENT at [facility] for trach exchange. Rest of plan as noted below. Plan: CXR shows tracheostomy tube present. Mild stable enlargement of the cardiac silhouette. Hazy right mid/lower lung opacity is similar compared to 04/29/2023. This could represent a small pleural effusion and/or infiltrate/atelectasis. Trach care Pulmonary toileting IV antibiotics PRN breathing treatments Continue steroids Antihypertensive medications IV fluid hydration Accu-Cheks, insulin sliding scale PRN. F/u Cardiology recs Pain control Avoid oversedation Diurese w/ IV Lasix BID. Monitor renal function. Monitor electrolytes. Supplement as necessary. Monitor ins and outs. Diet and lifestyle modifications for weight reduction Morbid obesity - complicates all care Prognosis: Poor given patient's multiple co-morbidities. Condition: Critical Rest of plan per hospitalist and other consultants. Thank you, Ebenezer Limon NP, for allowing me to participate in this patient's care. Further recommendations will depend on the patient's clinical course. Please do not hesitate to contact me if you have any questions or concerns. This medical document was created using an electronic medical record system with [employer] dictation system. Although these documentations are being carefully reviewed, there may still be some phonetic and typographical changes. The errors are purely typographical, due to imperfection on the software program, and do not reflect any compromise in the patient's medical care. Plan discussed with: Patient, Other (KHOI Franks) AIMEE LOWE MD Oct 13, 2024 22:31
[2024-10-14 05:00] VITALS: BP 109/54; PULSE 76; RESP 19; TEMP 98; O2SAT 98
[2024-10-14 07:07] LABS: Basophils # (auto) 0 10 ^3/uL (0-0.2); Basophils % (auto) 0.4 % (0.0-2.0); Eosinophils # (auto) 0.4 10 ^3/uL (0-0.8); Eosinophils % (auto) 7.5 % (0.0-7.0); Hematocrit 42.8 % (41.0-53.0); Hemoglobin 14.4 g/dL (13.5-17.5); Lymphocytes # (auto) 0.7 10 ^3/uL (0.4-5.4); Lymphocytes % (auto) 12.6 % (10.0-50.0); Mean Corpuscular Hemoglobin 32.7 pg (28.0-32.0); Mean Corpuscular Hgb Conc. 33.6 g/dL (32.0-36.0); Mean Corpuscular Volume 97.4 fL (80.0-100.0); Monocytes # (auto) 0.7 10 ^3/uL (0-1.3); Monocytes % (auto) 12.4 % (0.0-12.0); Neutrophils # (auto) 3.9 10 ^3/uL (1.6-8.6); Neutrophils % (auto) 67.1 % (37.0-80.0); Platelet Count (auto) 184 10^3/uL (140-450); Red Blood Cells 4.39 10^6/uL (4.5-5.90); Red Cell Distribution Width 13.7 % (11.8-14.3); White Blood Cell 5.7 10^3/uL (4.4-10.8)
--- NOTE | 2024-10-14 07:40 | DVH ---
CLINICAL INFORMATION: 54 years old, Male; pneumonia. TECHNIQUE: Single AP portable chest radiograph was obtained. COMPARISON: XY CHEST PORTABLE on DOS: 10/12/24, XY CHEST PORTABLE on DOS: 04/29/23, CHEST PORTABLE on D OS: 09/25/22 FINDINGS: Stable appearance of the tracheostomy tube. Large area of airspace consolidation in the right lung is slightly increased. Interstitial opacities in the left lung and likely ill-defined patchy airspace o pacities of the left lung base, also slightly increased. No pneumothorax. Cardiac silhouette and medi astinal silhouette are partially obscured by adjacent opacities. IMPRESSION: Worsening airspace opacities and interstitial opacities.
[2024-10-14 08:00] VITALS: PULSE 86
[2024-10-14 09:02] VITALS: BP 107/44; PULSE 86; RESP 19; TEMP 98.7; O2SAT 98
[2024-10-14 09:30] VITALS: O2SAT 99
[2024-10-14] MEDS ORDERED: AUG875T PO (12:04)
--- NOTE | 2024-10-14 12:09 | DVHDS2 ---
Discharge Summary Date of Admission Oct 12, 2024 at 13:07 Date of Discharge: Oct 14, 2024 Admitting Diagnosis Some breath, rule out pneumonia Labs/Diagnostic Data: Laboratory Results Test 10/14/24 11:10 10/14/24 06:21 10/12/24 14:37 10/12/24 11:04 POC Glucose 157 mg/dl (70-106) White Blood Count 5.7 10^3/uL (4.4-10.8) Red Blood Count 4.39 10^6/uL (4.5-5.90) Hemoglobin 14.4 g/dL (13.5-17.5) Hematocrit 42.8 % (41.0-53.0) Mean Corpuscular Volume 97.4 fL (80.0-100.0) Mean Corpuscular Hemoglobin 32.7 pg (28.0-32.0) Mean Corpuscular Hemoglobin Concent 33.6 g/dL (32.0-36.0) Red Cell Distribution Width 13.7 % (11.8-14.3) Platelet Count 184 10^3/uL (140-450) Mean Platelet Volume 9.7 fL (6.9-10.8) Neutrophils (%) (Auto) 67.1 % (37.0-80.0) Lymphocytes (%) (Auto) 12.6 % (10.0-50.0) Monocytes (%) (Auto) 12.4 % (0.0-12.0) Eosinophils (%) (Auto) 7.5 % (0.0-7.0) Basophils (%) (Auto) 0.4 % (0.0-2.0) Neutrophils # (Auto) 3.9 10 ^3/uL (1.6-8.6) Lymphocytes # (Auto) 0.7 10 ^3/uL (0.4-5.4) Monocytes # (Auto) 0.7 10 ^3/uL (0-1.3) Eosinophils # (Auto) 0.4 10 ^3/uL (0-0.8) Basophils # (Auto) 0 10 ^3/uL (0-0.2) Nucleated Red Blood Cells 0.0 % Creatinine 0.73 mg/dL (0.700-1.30) Glomerular Filtration Rate Calc 108 mL/min (>90) Sodium Level 139 mmol/L (136-145) Potassium Level 4.0 mmol/L (3.5-5.1) Chloride Level 102 mmol/L (98-107) Carbon Dioxide Level 31 mmol/L (20-31) Anion Gap 6 (5-15) Blood Urea Nitrogen 14 mg/dL (9-23) BUN/Creatinine Ratio 16.9 (10.0-20.0) Serum Glucose 141 mg/dL (74-106) Lactic Acid Level 1.6 mmol/L (0.4-2.0) Calcium Level 10.2 mg/dL (8.7-10.4) Troponin I High Sensitivity 3 ng/L (</=54) B-Type Natriuretic Peptide 9.15 pg/mL (0-100) Other Laboratory Tests 10/14/24 06:21 10/12/24 14:37 Brief Hx & Hospital Course: History of Present Illness 54-year-old morbidly obese patient with a history of a tracheostomy tube patient came to the ED with concerns that the tracheostomy was bleeding patient states pain at the site of the tracheostomy redness swelling shortness of breath due to the tube not working properly patient states last time this occurred he has not had the tracheostomy tube replaced this was done at [facility] about 4 years ago and now with the patient's current complaints he comes here for evaluation and tube replacement patient was recommended for inpatient evaluation. Course of hospitalization: Patient was started on empiric antibiotic therapy with Zosyn vancomycin. Patient's O2 supplementation was decreased to 3 L via blow-by. Chest x-ray reveals questionable pneumonia versus atelectasis to right lobe. Further discussion with the patient reveals that he favors lying on his right side. The patient has been afebrile. White blood cell count has remained normal. Patient has denied any further tracheal drainage or sputum production. Pulmonary consultation was obtained. Patient has been cleared for discharge from their standpoint. Patient was instructed follow up with his ENT doctor at [facility] who placed his tracheostomy for possible exchange. He will be continued on antibiotic therapy with Augmentin 875 mg p.o. twice a day for seven days. All questions answered Physical examination General: Alert and Oriented x3. No acute distress. Well-nourished. Obese Eyes: EOMI. Anicteric. HENT: Moist mucous membranes. Tracheostomy dry and intact Lungs: Clear to auscultation bilaterally. No accessory muscle use. Cardiovascular: Regular rate and rhythm. No murmur. No JVD. Abdomen: Soft, non-tender and non-distended. No palpable masses. Extremities: No edema. Non-tender. Skin: No rashes or lesions. Warm. Neurologic: No focal neurological deficits. CN II-XII grossly intact, but not individually tested. Psychiatric: Cooperative. Appropriate mood and affect. Total time spent with patient discussing and formulating plan of care: 35 minutes. This medical document was created using an electronic medical record system with [employer] dictation system. Although this document has been carefully reviewed, there may still be some phonetic and typographical errors. These areas are purely typographical due to imperfections of the software programs, and do not reflect any compromise in the patient's medical care. Consults/Reason for consult Pulmonology: Tracheal bleeding Condition at Discharge: Fair Final Diagnosis/Problems List Acute on chronic hypoxic respiratory failure Secondary Diagnosis: -acute on chronic hypoxic respiratory failure -Right middle lobe atelectasis -community-acquired pneumonia, probable Gram-positive/Gram-negative etiology -morbid obesity -chronic tracheostomy -tracheal bleeding -diabetes mellitus Discharge Disposition: Home Discharge Instruct/Medications Diet: Regular Activity: No Restrictions, As Tolerated Follow Up/Referral: Follow up with ENT specialist at [facility] Medications: Continue all previous home medications Augmentin 875 mg p.o. twice a day for 7 days 36 Discharge Statement: "Patient was advised to return to the ER or call 911 if any headaches, dizziness, shortness of breath, chest pain, abdominal pain, bleeding, fevers, or worsening of medical condition. Patient was counseled about treatment plan, medications, possible side effects, patientverbalized understanding. All questions were answered to the best of my ability. This discharge took greater then 30 minutes in planning, reviewing documentation, counseling the patient, and discussing with other team members." ASSESSMENT ASSESSMENT Assessment Acute on chronic hypoxic respiratory failure Date of Service: Oct 14, 2024 Billing Provider: GÉNESIS MONTESINOS NP Common Visit Codes: 97317-RVY/OBS DISCH DAY >30min GÉNESIS MONTESINOS NP Oct 14, 2024 12:09
[2024-10-14 13:00] VITALS: BP 103/55; PULSE 80; RESP 18; TEMP 98.6; O2SAT 95
--- NOTE | 2024-10-14 21:57 | DVHPN2 ---
Progress Note - Dictate Date Seen: Oct 14, 2024 Medical Necessity Reason Pt with a Central, PICC or Fol: No Subjective Patient seen and examined at bedside. On supplemental oxygen, trach collar in place. Overnight events reviewed. vital signs Vital Sign Date Time Temp Pulse Resp B/P (MAP) Pulse Ox O2 Delivery O2 Flow Rate FiO2 10/14/24 13:00 98.6 80 18 103/55 (71) 95 98.6 10/14/24 09:30 Trach Collar 4.0 10/14/24 09:30 N/A Total Intake and Output 10/13/24 10/13/24 10/14/24 15:00 23:00 07:00 Intake Total 480 ml 1700 ml 938 ml Output Total 100 ml Balance 480 ml 1600 ml 938 ml objective Gen.: Patient lying in bed in no apparent distress. On supplemental oxygen. S/p trach, trach collar in place. Head: Normocephalic, atraumatic. Eyes: EOMI/PERRLA. Ears: Normal hearing. Normal anatomy. Neck/trachea: Trach in place. Nose: Normal external anatomy. Mouth: Moist mucous membranes. Chest: Decreased air entry bilaterally. No wheezing or rhonchi. Cardiovascular: Positive S1, positive S2. Regular rate and rhythm. Abdomen: Positive bowel sounds in all 4 quadrants. Soft, non-tender, non- distended. : Deferred. Rectal: Deferred. Skin: Warm, dry. Intact. Extremities: 2+ radial pulses bilaterally. No lower extremity edema. Neuro: Awake, alert, oriented x3. No gross motor or sensory deficits. Cranial nerves II through XII intact. Patient is wheelchair bound. laboratory and microbiology Laboratory Tests 10/14/24 06:21 10/12/24 14:37 Test 10/12/24 14:37 Range/Units Serum Glucose 141 H 74-106 mg/dL Assessment/Plan Impression: Tracheostomy with hemorrhage Congestive heart failure DM type II Hypertension Hx of urinary tract infections. Morbid obesity Acute on chronic hypoxic respiratory failure ? Right middle lobe atelectasis versus community-acquired pneumonia, probable Gram-positive/Gram-negative etiology Events: S/p trach. Trach collar in place, on 4 LPM No hemoptysis Redness around site improving. Continue trach care. Passy-Hanover valve. Continue IV antibiotics - Zosyn Transition to PO antibiotics on discharge. Labs and imaging reviewed. Rest of plan as noted below. Plan: CXR shows tracheostomy tube present. Mild stable enlargement of the cardiac silhouette. Hazy right mid/lower lung opacity is similar compared to 04/29/2023. This could represent a small pleural effusion and/or infiltrate/atelectasis. S/p trach. Trach collar in place, on 4 LPM Trach care Pulmonary toileting IV antibiotics PRN breathing treatments Continue steroids Antihypertensive medications IV fluid hydration Accu-Cheks, insulin sliding scale PRN. F/u Cardiology recs Pain control Avoid oversedation Diurese w/ IV Lasix BID. Monitor renal function. Monitor electrolytes. Supplement as necessary. Monitor ins and outs. Diet and lifestyle modifications for weight reduction Morbid obesity - complicates all care Prognosis: Poor given patient's multiple co-morbidities. Rest of plan per hospitalist and other consultants. Thank you, Ebenezer Limon NP, for allowing me to participate in this patient's care. Further recommendations will depend on the patient's clinical course. Please do not hesitate to contact me if you have any questions or concerns. This medical document was created using an electronic medical record system with [employer] dictation system. Although these documentations are being carefully reviewed, there may still be some phonetic and typographical changes. The errors are purely typographical, due to imperfection on the software program, and do not reflect any compromise in the patient's medical care. Plan discussed with: Patient, Other (KHOI Bang) AIMEE LOWE MD Oct 14, 2024 21:57
== END 2024-10-14 15:05 | disposition home or self-care (01) | DRG 205 ==
LOC: ER 10:33 → OVERFLOW 13:07 → CENTRAL 17:45
PROVIDERS: ADMIT Hospitalist; ATTEND Nurse Practitioner Acute Care
DX: J95.01 Hemorrhage from tracheostomy stoma (principal); J15.69 Pneumonia due to other Gram-negative bacteria; J96.21 Acute and chronic respiratory failure with hypoxia; J15.9 Unspecified bacterial pneumonia; J98.11 Atelectasis; Z68.45 Body mass index [BMI] 70 or greater, adult; I50.9 Heart failure, unspecified; I11.0 Hypertensive heart disease with heart failure; E78.5 Hyperlipidemia, unspecified; E11.9 Type 2 diabetes mellitus without complications; E66.01 Morbid (severe) obesity due to excess calories; Z83.3 Family history of diabetes mellitus; Z87.891 Personal history of nicotine dependence; Z99.3 Dependence on wheelchair; Z80.42 Family history of malignant neoplasm of prostate; Z88.1 Allergy status to other antibiotic agents; Z87.440 Personal history of urinary (tract) infections
CPT/HCPCS: 36415; 71045; 80048; 82565; 82962; 83605; 83880; 84484; 85025; 94640; 96365; 96375; G0378; J1815; J2405; J2543

== ENCOUNTER 2025-08-30 14:03 | Inpatient (IN) | payer MEDICARE, MEDICAID ==
[~2025-08-30] VITALS: Ht 165.1 cm; Wt 202.2 kg
[~2025-08-30 14:03] MED LIST changes: -ALBUAER3 IN; -ASCO10003 PO; +AUG875T PO; -FURO80TA3 PO; +METF-370 PO; +PIOG1TAB37 PO; -RIVA20TA PO; -ZINC220T6 PO
[2025-08-30 14:20] VITALS: PULSE 87; RESP 22; O2SAT 95
--- NOTE | 2025-08-30 14:21 | ED.PDOC ---
History of Present Illness HPI Comments 55-year-old male brought to the ER because he has been having shortness a breath for the past few weeks. Patient is on home oxygen. He does have trach. He was trach back in 2008 for pneumonia for which he could not get off the ventilator. History of hypertension diabetes. Patient does ambulate. His shortness a breath more so he is on ambulation. Denies chest pain. Denies any other symptoms. Chief Complaint: Shortness of Breath Time Seen by MD: 14:05 Primary Care Provider: RACHID Fong Notes: Nurses Notes, Medications, Allergies Allergies: Coded Allergies: Levofloxacin (Verified Adverse Reaction, Mild, ITCHING, 09/24/15) User: Anastacia Robles RN Date: 09/23/15 18:47 Type: Emergency Department Notes BENADRYL 25 MG GIVEN FOR ITCHING, PT RESTING WITH EYES CLOSED User: Anastacia Robles RN Date: 09/23/15 18:15 Type: Emergency Department Notes PT STATES THAT SINCE THE LEVIQUN STARTED THAT HIS ARM IS "ITCHY". IV MEDS DC'D @ THIS TIME. MD KAPOOR AWARE, NEW ORDERS RECIEVED Home Meds Active Scripts Amoxicillin & Pot Clavulanate (AUGMENTIN TABLET) 875 Mg Tb, 875 MG PO BID for 7 Days, #14 TAB Prov:GÉNESIS MONTESINOS PROPERTY MANAGEMENT ASSISTANT 10/14/24 Reported Medications Furosemide (Furosemide) 40 Mg Tab, 1 TAB PO BID for 30 Days, #60 10/14/24 Pioglitazone Hydrochloride (PIOGLITAZONE HCL) 30 Mg Tab, 1 TAB PO DAILY 10/12/24 Metformin Hydrochloride (Metformin Hcl) 500 Mg Tab, 1 TAB PO BID 10/12/24 Nitroglycerin (Nitrostat) 0.4 Mg Sub, 0.4 MG SL PRN PRN for FOR CHEST PAIN for 30 Days, INJ 12/02/21 Amlodipine Besylate (Amlodipine Besylate) 10 Mg Tab, 1 TAB PO DAILY, #30 TAB 5 Refills 12/02/21 Hydrocodone-Acetaminophen (Hydrocodone/Acetaminophen 10-325 mg) 1 Tab Tab, 1 TAB PO Q4HP PRN for PAIN, TAB 12/02/21 Aspirin (Aspir-Low) 81 Mg Tab, 81 MG PO DAILY for 30 Days, MG 12/01/21 Lisinopril (Lisinopril) 20 Mg Tab, 1 TAB PO DAILY, #30 TAB 5 Refills 12/01/21 Fenofibrate (Fenofibrate Micronized) 200 Mg Cap, 1 CAP PO DAILY, #30 CAP 5 Refills 12/01/21 Information Source: Patient Mode of Arrival: Wheelchair Severity: Moderate Timing: Days Duration: Since onset Past Medical History PAST MEDICAL HISTORY: CHF, DM, High Lipids, HTN, UTI'S Surgical History: Denies all surgeries Family History Family History: Family hx of DM, Family hx of Cancer Social History Smoker: Non-Smoker, Quit Greater Than 1 Year Alcohol: Denies ETOH Use Drugs: Denies Drug Use Lives In: Home Constitutional: denies: chills, diaphoresis, fatigue, fever, malaise, sweats, weakness, others EENTM: denies: blurred vision, double vision, ear bleeding, ear discharge, ear drainage, ear pain, ear ringing, eye pain, eye redness, hearing loss, mouth pain, mouth swelling, nasal discharge, nose bleeding, nose congestion, nose pain, photophobia, tearing, throat pain, throat swelling, voice changes, others Respiratory: reports: shortness of breath; denies: cough, hemoptysis, orthopnea, SOB at rest, SOB with excertion, stridor, wheezing, others Cardiovascular: denies: chest pain, dizzy spells, diaphoresis, Dyspnea on exertion, edema, irregular heart beat, left arm pain, lightheadedness, palpitations, PND, syncope, others Gastrointestinal: denies: abdomen distended, abdominal pain, blood streaked bowels, constipated, diarrhea, dysphagia, difficulty swallowing, hematemesis, melena, nausea, poor appetite, poor fluid intake, rectal bleeding, rectal pain, vomiting, others Genitourinary: denies: burning, dysuria, flank pain, frequency, hematuria, incontinence, penile discharge, penile sore, pain, testicle pain, testicle swelling, urgency, others Neurological: denies: dizziness, fainting, headache, left sided numbness, left sided weakness, numbness, paresthesia, pre-existing deficit, right sided numbness, right sided weakness, seizure, speech problems, tingling, tremors, weakness, others Musculoskeletal: denies: back pain, gout, joint pain, joint swelling, muscle pain, muscle stiffness, neck pain, others Integumetry: denies: bruises, change in color, change in hair/nails, dryness, laceration, lesions, lumps, rash, wounds, others Allergic/Immunocompromised: denies: Difficulty Healing, Frequent Infections, Hives, Itching, others Hematologic/Lymphatic: denies: anemia, blood clots, easy bleeding, easy bruising, swollen glands, others Endocrine: denies: excessive hunger, excessive sweating, excessive thirst, excessive urination, flushing, intolerance to cold, intolerance to heat, unexplained weight gain, unexplained weight loss, others Psychiatric: denies: anxiety, bipolar disorder, depression, hopeless, panic disorder, schizophrenia, sleepless, suicidal, others Physical Exam General Appearance: Moderate Distress, Obese HEENT: Normal ENT Inspection, Pharynx Normal, TMs Normal Neck: Full Range of Motion, Non-Tender, Normal, Normal Inspection Respiratory: Respiratory Distress, Other (Coarse breath sounds) Cardiovascular: No Edema, No JVD, No Murmur, No Gallop, Normal Peripheral Pulses, Regular Rate/Rhythm Breast Exam: Deferred Gastrointestinal: No Organomegaly, Non Tender, No Pulsatile Mass, Normal Bowel Sounds, Soft Genitalia: Deferred Pelvic: Deferred Rectal: Deferred Extremities: No calf tenderness, Pedal edema Musculoskeletal : Apperance: Normal Neurologic: Alert, No Motor Deficits, No Sensory Deficits Cerebellar Function: NOT DONE Reflexes: NOT DONE Skin: Normal Color Peripheral Pulses: 3+ Radial (R), 3+ Radial (L) Lymphatic: No Adenopathy Was a procedure done? Was a procedure done?: No Differential Dx Considerations may include: Pneumonia Electrolyte imbalance X-Ray, Labs, Meds, VS Vital Signs Date Time Temp Pulse Resp B/P (MAP) Pulse Ox O2 Delivery O2 Flow Rate FiO2 08/30/25 15:03 25 99 Trach Collar 6 N/A 08/30/25 14:09 89 08/30/25 14:06 89 24 113/71 93 Lab Test 08/30/25 14:33 Range/Units White Blood Count 7.0 4.4-10.8 10^3/uL Red Blood Count 4.34 L 4.5-5.90 10^6/uL Hemoglobin 14.0 13.5-17.5 g/dL Hematocrit 42.0 41.0-53.0 % Mean Corpuscular Volume 96.7 80.0-100.0 fL Mean Corpuscular Hemoglobin 32.4 H 28.0-32.0 pg Mean Corpuscular Hemoglobin Concent 33.5 32.0-36.0 g/dL Red Cell Distribution Width 13.0 11.8-14.3 % Platelet Count 225 140-450 10^3/uL Mean Platelet Volume 9.4 6.9-10.8 fL Neutrophils (%) (Auto) 60.5 37.0-80.0 % Lymphocytes (%) (Auto) 29.5 10.0-50.0 % Monocytes (%) (Auto) 7.9 0.0-12.0 % Eosinophils (%) (Auto) 1.6 0.0-7.0 % Basophils (%) (Auto) 0.5 0.0-2.0 % Neutrophils # (Auto) 4.3 1.6-8.6 10 ^3/uL Lymphocytes # (Auto) 2.1 0.4-5.4 10 ^3/uL Monocytes # (Auto) 0.6 0-1.3 10 ^3/uL Eosinophils # (Auto) 0.1 0-0.8 10 ^3/uL Basophils # (Auto) 0 0-0.2 10 ^3/uL Nucleated Red Blood Cells 0.1 % Sodium Level 137 136-145 mmol/L Potassium Level 4.0 3.5-5.1 mmol/L Chloride Level 98 98-107 mmol/L Carbon Dioxide Level 31 20-31 mmol/L Anion Gap Pending Blood Urea Nitrogen 18 9-23 mg/dL Creatinine 0.73 0.700-1.30 mg/dL Glomerular Filtration Rate Calc 107 >90 mL/min BUN/Creatinine Ratio 24.7 H 10.0-20.0 Serum Glucose 136 H 74-106 mg/dL Calcium Level 9.8 8.7-10.4 mg/dL Troponin I High Sensitivity Pending Current Medications Medications (Trade) Dose Ordered Sig/Parker Route Start Time Stop Time Status Last Admin Azithromycin 250 ml @ 125 mls/hr ONCE ONCE IV 08/30/25 14:30 08/30/25 16:29 08/30/25 14:30 Albuterol (Ventolin Medneb) 5 mg ONCE ONCE NEB 08/30/25 14:30 08/30/25 14:31 DC 08/30/25 15:03 Ipratropium Rudd (Atrovent Medneb) 0.5 mg ONCE ONCE NEB 08/30/25 14:30 08/30/25 14:31 DC 08/30/25 15:[address] [address] Ph: [phone] DIAGNOSTIC IMAGING Diagnostic Imaging Report : [id number] Signed PATIENT: JANE CARLOS ACCT: [id number] UNIT: [id number] : 1970 LOC: ER ROOM / BED: / AGE / SEX: 55 / M ADM STATUS: REG ER SERVICE 04 ORDERING PHYSICIAN: DARLENE KIM MD PROCEDURE(s): CXRP - CHEST PORTABLE REASON: sob ORDER NUMBER(s): [id number], ACCESSION NUMBER(s): [id number] CHEST RADIOGRAPH Indication: sob Technique: Single frontal view of the chest was obtained COMPARISON: XY CHEST PORTABLE on DOS: 10/14/24, XY CHEST PORTABLE on DOS: 10/12/24, XY CHEST PORTABLE on DOS: 04/29/23, CHEST PORTABLE on DOS: 09/25/22, CXRP on DOS: 09/25/22 FINDINGS: Lines and Tubes: None Lungs: Congestion. Pleura: No effusion.No pneumothorax. Cardiomediastinal contours: Cardiomegaly. Bones: Unremarkable Extremely limited examination secondary to suboptimal penetration due to patient body habitus. IMPRESSION: Extremely limited examination secondary to suboptimal penetration due to patient body habitus. Cardiomegaly and pulmonary vascular congestion. Patient alert. Complaining of shortness a breath. Saturation on the low side. Placed on oxygen. Possible pneumonia. Establish intravenous access. Was given Zosyn Was given azithromycin. Explained to the patient. Continue monitoring. Time of 1ST Reevaluation: 14:19 Reevaluation 1ST: Unchanged Patient Education/Counseling: Diagnosis, Treatment, Prognosis Family Education/Counseling: Diagnosis, Treatment SEPSIS Sepsis Screen Date sepsis recognized/suspect: Aug 30, 2025 Time Sepsis recognized/suspect: 1406 Recent Procedure: No On Antibiotic Therapy: No Respiratory Rate >20: Yes Heart Rate >90: No Temp<36 C (96.8 F) or >38.3 C: No SBP <90 or MAP <65 mmHG: No New Acute Mental Status Change: No Is the patient on CPAP, BIPAP,: No Physician Orders Chest Portable (08/30/25 14:05) Basic Metabolic Panel (08/30/25 14:05) Piperacillin-Tazob 3.375gm (Zosyn 3.375g (08/30/25 14:30) Azithromycin 500mg/ 250ml (Zithromax 50 (08/30/25 14:30) Troponin-I Hs (08/30/25 14:21) Troponin-I Hs (08/30/25 15:21) Troponin-I Hs (08/30/25 17:21) Vital Signs Date Time Temp Pulse Resp B/P (MAP) Pulse Ox O2 Delivery O2 Flow Rate FiO2 08/30/25 15:03 25 99 Trach Collar 6 N/A 08/30/25 14:09 89 08/30/25 14:06 89 24 113/71 93 Laboratory Tests Test 08/30/25 14:33 White Blood Count 7.0 10^3/uL (4.4-10.8) Medications Medications Dose Ordered Sig/Parker Route Start Time Stop Time Status Last Admin Dose Admin Albuterol 5 mg ONCE ONCE NEB 08/30/25 14:30 08/30/25 14:31 DC 08/30/25 15:03 Azithromycin 250 ml @ 125 mls/hr ONCE ONCE IV 08/30/25 14:30 08/30/25 16:29 08/30/25 14:30 Ipratropium Rudd 0.5 mg ONCE ONCE NEB 08/30/25 14:30 08/30/25 14:31 DC 08/30/25 15:03 Departure 1 Departure Time of Disposition: 14:20 Impression: Primary Impression: Pneumonia Qualified Codes: J18.9 - Pneumonia, unspecified organism Disposition: ADMITTED INPATIENT Admit to: Med Surg Condition: Guarded Critical Care Note Critical Care Time?: Yes (90 min-critical care time only) Stability Stability form required: No Heart Score Heart Score: Heart Score Response (Comments) Value History Slightly Suspicious 0 EKG Normal 0 Age 45-64 1 Risk Factors >3 or Hx ASHD 2 Troponin Normal limit 0 Total 3 I personally scribed for DARLENE KIM MD ([email or web address]) on 08/30/25 at 15:24. Electronically submitted by Chanelle Betts ([email or web address]). DARLENE KIM MD Aug 30, 2025 14:21
--- NOTE | 2025-08-30 14:28 | ECG ---
[facility] Test Date: 2025-08-30 Test Time: 14:09:04 Pat Name: JANE CARLOS Department: Room: [address] [place] [address] Gender: M Teaching Young: CARIDAD : 1970 Requested By: EMERGENCY EMERGENCY Order Number: [id number] Reading MD: Danial Sigala Measurements Intervals [place] Rate: 89 P: 42 [place]: 136 QRS: 79 QRSD: 94 T: 27 QT: 386 QTc: 470 Interpretive Statements Sinus rhythm Low voltage, precordial leads Abnormal R-wave progression, early transition Electronically Signed On 08-31-2025 15:17:05 PDT by Danial Sigala Please click the below link to view image of tracing.
[2025-08-30] MEDS: AZITHROMYCIN 500MG/ 250ML 250 ML IV ONE (14:30)
[2025-08-30] MEDS: PIPERACILLIN-TAZOB 3.375GM 100 ML IV ONE (14:30)
[2025-08-30 14:49] LABS: Hematocrit 42.0 % (41.0-53.0); Hemoglobin 14.0 g/dL (13.5-17.5); Mean Corpuscular Hemoglobin 32.4 pg (28.0-32.0); Mean Corpuscular Volume 96.7 fL (80.0-100.0); Nucleated Red Blood Cells % 0.1 %
--- NOTE | 2025-08-30 14:56 | DVH ---
CHEST RADIOGRAPH Indication: sob Technique: Single frontal view of the chest was obtained COMPARISON: XY CHEST PORTABLE on DOS: 10/14/24, XY CHEST PORTABLE on DOS: 10/12/24, XY CHEST PORTABLE on DOS: 04/29/23, CHEST PORTABLE on DOS: 09/25/22, CXRP on DOS: 09/25/22 FINDINGS: Lines and Tubes: None Lungs: Congestion. Pleura: No effusion.No pneumothorax. Cardiomediastinal contours: Cardiomegaly. Bones: Unremarkable Extremely limited examination secondary to suboptimal penetration due to patient body habitus. IMPRESSION: Extremely limited examination secondary to suboptimal penetration due to patient body habitus. Cardiomegaly and pulmonary vascular congestion.
[2025-08-30 14:57] LABS: Chloride 98 mmol/L (98-107); Potassium 4.0 mmol/L (3.5-5.1)
[2025-08-30 14:58] LABS: Carbon Dioxide 31 mmol/L (20-31)
[2025-08-30 14:59] LABS: Calcium 9.8 mg/dL (8.7-10.4)
[2025-08-30 15:03] LABS: BUN/Creatinine Ratio 24.7 (10.0-20.0); Blood Urea Nitrogen 18 mg/dL (9-23)
[2025-08-30] MEDS: IPRATROPIUM BROM 0.5 MG/2.5ML INH SOL NEB ONE (15:03)
[2025-08-30] MEDS: ALBUTEROL SULF 2.5 MG/0.5ML(0.5%) NEB SOLN NEB ONE (15:03)
[2025-08-30 15:05] LABS: Glucose 136 mg/dL (74-106)
[2025-08-30 15:49] LABS: Anion Gap 8 (5-15); Sodium 137 mmol/L (136-145)
--- NOTE | 2025-08-30 16:59 | DVHHPRES ---
History of Present Illness Resident Creating Document: YAA JENKINS History of Present Illness Ky Giron is a 55-year-old male patient who presents to ED with chief complaint of dyspnea, headaches, blurry vision which started two weeks ago, and was progressively getting confused, prompting his visit today to the ED. Patient does present sick contacts (daughter did have flu-like symptoms). Patient is on home oxygen through trach collar with 3 L/min, did not have to increased oxygen requirement. Denies any other associated symptoms including productive cough, chest pain, fever, chills and other symptoms. Past medical history: Diabetes, morbid obesity, polytrauma requiring endotrache al intubation complicated with ventilator associated pneumonia requiring tracheostomy since 2008, after one year try to remove tracheostomy but failed and had to replace tracheostomy. Surgical history: Tracheostomy x2 Family history: Father had prostate cancer Social history: Lives in [place] with (next of kin). Ex tobacco abuse (20 pack-year history of smoking quit 30 years ago, ex marijuana in ex alcohol abuse, quit three years ago. Denies current tobacco, alcohol and other drug abuse Allergies: Levaquin Home medication: Amlodipine 10 mg p.o. daily, aspirin 81 mg p.o. daily, fenofibrate 200 mg p.o. daily, furosemide 40 mg p.o. b.i.d., hydrocodone, lisinopril 20 mg p.o. daily, metformin 500 mg p.o. b.i.d., nitroglycerin PRN, pioglitazone Patient seen and examined at bedside. Currently has no new complaints. Breathing through trach collar a 3 L/min, decreased from 6 L permanent. Admitted to telemetry for further evaluation. Past Medical History Per HPI Past Surgical History Per HPI Family History Per HPI Past Social History Per HPI Review of Systems Review of Systems Per HPI Allergies: Coded Allergies: Levofloxacin (Verified Adverse Reaction, Mild, ITCHING, 09/24/15) User: Anastacia Robles RN Date: 09/23/15 18:47 Type: Emergency Department Notes BENADRYL 25 MG GIVEN FOR ITCHING, PT RESTING WITH EYES CLOSED User: Anastacia Robles RN Date: 09/23/15 18:15 Type: Emergency Department Notes PT STATES THAT SINCE THE LEVIQUN STARTED THAT HIS ARM IS "ITCHY". IV MEDS DC'D @ THIS TIME. MD KAPOOR AWARE, NEW ORDERS RECIEVED Exam Vital Signs Vital Signs Date Time Temp Pulse Resp B/P (MAP) Pulse Ox O2 Delivery O2 Flow Rate FiO2 08/30/25 16:00 99.2 81 22 131/65 (87) 95 99.2 08/30/25 15:03 Trach Collar 6 N/A Exam Patient lying in bed, in no acute distress General: Lucid, morbidly obese, afebrile, mucosae are moist Cardiovascular: Normal S1 and S2. No murmurs, gallops or rubs Respiratory: Normal ventilation mechanics through tracheostomy. Clear lung sounds on auscultation. On tracheostomy collar at 3 L/min Abdomen: Soft, nontender, no organomegaly, normal bowel sounds MSK/skin: Mobilizes 4 limbs. Skin is dry and warm Neurological: Oriented in 3 spheres. No motor no sensitive deficits. Pupils are isocoric and reactive Labs/Xrays Labs Test 08/30/25 15:26 08/30/25 14:33 Range/Units Troponin I High Sensitivity < 3 L </=54 ng/L White Blood Count 7.0 4.4-10.8 10^3/uL Red Blood Count 4.34 L 4.5-5.90 10^6/uL Hemoglobin 14.0 13.5-17.5 g/dL Hematocrit 42.0 41.0-53.0 % Mean Corpuscular Volume 96.7 80.0-100.0 fL Mean Corpuscular Hemoglobin 32.4 H 28.0-32.0 pg Mean Corpuscular Hemoglobin Concent 33.5 32.0-36.0 g/dL Red Cell Distribution Width 13.0 11.8-14.3 % Platelet Count 225 140-450 10^3/uL Mean Platelet Volume 9.4 6.9-10.8 fL Neutrophils (%) (Auto) 60.5 37.0-80.0 % Lymphocytes (%) (Auto) 29.5 10.0-50.0 % Monocytes (%) (Auto) 7.9 0.0-12.0 % Eosinophils (%) (Auto) 1.6 0.0-7.0 % Basophils (%) (Auto) 0.5 0.0-2.0 % Neutrophils # (Auto) 4.3 1.6-8.6 10 ^3/uL Lymphocytes # (Auto) 2.1 0.4-5.4 10 ^3/uL Monocytes # (Auto) 0.6 0-1.3 10 ^3/uL Eosinophils # (Auto) 0.1 0-0.8 10 ^3/uL Basophils # (Auto) 0 0-0.2 10 ^3/uL Nucleated Red Blood Cells 0.1 % Sodium Level 137 136-145 mmol/L Potassium Level 4.0 3.5-5.1 mmol/L Chloride Level 98 98-107 mmol/L Carbon Dioxide Level 31 20-31 mmol/L Anion Gap 8 5-15 Blood Urea Nitrogen 18 9-23 mg/dL Creatinine 0.73 0.700-1.30 mg/dL Glomerular Filtration Rate Calc 107 >90 mL/min BUN/Creatinine Ratio 24.7 H 10.0-20.0 Serum Glucose 136 H 74-106 mg/dL Calcium Level 9.8 8.7-10.4 mg/dL SEPSIS Sepsis Screen Date sepsis recognized/suspect: Aug 30, 2025 Time Sepsis recognized/suspect: 1500 Recent Procedure: No On Antibiotic Therapy: No Respiratory Rate >20: Yes Heart Rate >90: No Temp<36 C (96.8 F) or >38.3 C: No SBP <90 or MAP <65 mmHG: No New Acute Mental Status Change: No Is the patient on CPAP, BIPAP,: No Physician Orders Chest Portable (08/30/25 14:05) Admit (08/30/25 16:52) Code Status (08/30/25 16:52) Acetaminophen Tablet (Tylenol Tablet) (08/30/25 17:00) Ondansetron Hcl (Zofran) (08/30/25 17:00) Complete Blood Count (08/31/25 04:00) Comprehensive Metabolic Panel (08/31/25 04:00) Npo (Nothing By Mouth) Diet (08/30/25 Dinner) Echo 2d Mode Cardiac Dop (08/30/25 16:52) Lovenox 40mg (08/31/25 10:00) Oxygen By Nasal Cannula (08/30/25 16:52) Stat Ekg For Chest Pain (08/30/25 16:52) Notify Md Of Changes From Base (08/30/25 16:52) Caterer'S Aide For 24 Hours (08/30/25 16:52) Emergency Dysrhythmia Protocol (08/30/25 16:52) Rhythm Strips Once Every Shift (08/30/25 16:52) Cefepime 1 Gm (08/30/25 22:00) Cefepime 1 Gm (08/30/25 17:00) Vancomycin (08/30/25 17:00) Vancomycin (08/30/25 17:00) Furosemide Injection (Lasix Injection) (08/30/25 18:00) Furosemide Injection (Lasix Injection) (08/30/25 17:00) Covid19 Antigen Sheryl (08/30/25 ) Rapid Influenza A&B (08/30/25 16:52) Mrsa Screen (08/30/25 16:52) Blood Culture (08/30/25 16:52) Urine Bacterial Culture (08/30/25 16:52) Respiratory Culture W/ Gs (08/30/25 16:52) Vitamin D, 25-Hydroxy (08/30/25 16:52) Vitamin B12 (08/30/25 16:52) Urinalysis (08/30/25 16:52) Thyroid Stimulating Hormone (08/30/25 16:52) PTPTT (08/30/25 16:52) Phosphorus (08/30/25 16:52) Magnesium (08/30/25 16:52) Lipid Panel (08/30/25 16:52) Lactic Acid W/ Reflex Order (08/30/25 16:52) Hemoglobin A1c (08/30/25 16:52) Drug Screen (08/30/25 16:52) Abg W/ Co-Ox (08/30/25 16:52) Vital Signs Date Time Temp Pulse Resp B/P (MAP) Pulse Ox O2 Delivery O2 Flow Rate FiO2 08/30/25 16:00 99.2 81 22 131/65 (87) 95 99.2 08/30/25 15:03 25 99 Trach Collar 6 N/A 08/30/25 14:20 87 22 95 Trach Collar 6 N/A 08/30/25 14:20 99.1 87 22 123/49 (73) 95 99.1 08/30/25 14:18 91 08/30/25 14:09 89 08/30/25 14:06 89 24 113/71 93 Laboratory Tests Test 08/30/25 14:33 White Blood Count 7.0 10^3/uL (4.4-10.8) Medications Medications Dose Ordered Sig/Parker Route Start Time Stop Time Status Last Admin Dose Admin Albuterol 5 mg ONCE ONCE NEB 08/30/25 14:30 08/30/25 14:31 DC 08/30/25 15:03 5 MG Azithromycin 250 ml @ 125 mls/hr ONCE ONCE IV 08/30/25 14:30 08/30/25 16:29 DC 08/30/25 14:30 125 MLS/HR Ipratropium [place] 0.5 mg ONCE ONCE NEB 08/30/25 14:30 08/30/25 14:31 DC 08/30/25 15:03 0.5 MG Assessment/Plan Assessment/Plan ASSESSMENT Acute on chronic respiratory failure Acute on newly diagnosed congestive heart failure (unknown LVEF) Probable community-acquired pneumonia Morbid obesity Diabetes non-insulin requiring-controlled (hemoglobin A1c 6.8%) Dyslipidemia PLAN Patient currently with oxygen therapy through trach collar wean from 6 L/min to 3 L/min (home oxygen requirement) Obtain VBG which was within normal limits Currently under empiric IV antibiotic (cefepime and vancomycin) Ordered urine analysis. Ordered friedman cultures and respiratory swabs. Currently on oxygen therapy, bronchodilators and empiric IV antibiotic. Patient is not wheezing at this time. No IV steroids indicated Continue home medication Started atorvastatin Chest x-ray shows congestive heart failure with pulmonary edema. Indicated IV furosemide Goals of care discussed with patient for over 18 minutes: Full code status Discussed plan with Dr. Rubalcava, patient and nurses: Patient admitted to telemetry. Currently under empiric IV antibiotic, oxygen therapy and bronchodilators. Awaiting results from culture. Ordered echocardiogram. Plan discussed with: Patient, Other (Nurses) My Orders Orders - YAA JENKINS RESIDENT Procedure Category Date Status Time Admit ADMIT 08/30/25 Verified 16:52 Code Status CODE 08/30/25 Verified 16:52 Acetaminophen Tablet PHA 08/30/25 Verified (Tylenol Tablet) 17:00 Ondansetron Hcl PHA 08/30/25 Verified (Zofran) 17:00 Complete Blood Count LAB 08/31/25 Verified 04:00 Comprehensive LAB 08/31/25 Verified Metabolic Panel 04:00 Npo (Nothing By DIET 08/30/25 Verified Mouth) Diet Dinner Echo 2d Mode Cardiac US 08/30/25 Verified DOP 16:52 Lovenox 40mg PHA 08/31/25 Verified 10:00 Oxygen By Nasal RT 08/30/25 Verified Cannula 16:52 Stat Ekg For Chest [facility] 08/30/25 Verified Pain 16:52 Notify Md Of Changes [facility] 08/30/25 Verified From Base 16:52 Caterer'S Aide For [facility] 08/30/25 Verified 24 Hours 16:52 Emergency Dysrhythmia [place] 08/30/25 Verified Protocol 16:52 Rhythm Strips Once [facility] 08/30/25 Verified Every Shift 16:52 Cefepime 1 Gm PHA 08/30/25 Verified 22:00 Cefepime 1 Gm PHA 08/30/25 Verified 17:00 Vancomycin PHA 08/30/25 Verified 17:00 Vancomycin PHA 08/30/25 Verified 17:00 Furosemide Injection PHA 08/30/25 Verified (Lasix Injection) 18:00 Furosemide Injection PHA 08/30/25 Verified (Lasix Injection) 17:00 Covid19 Antigen Sheryl LAB 08/30/25 Verified Rapid Influenza A&B LAB 08/30/25 Verified 16:52 Mrsa Screen [facility] 08/30/25 Verified 16:52 Blood Culture [facility] 08/30/25 Verified 16:52 Urine Bacterial [facility] 08/30/25 Verified Culture 16:52 Respiratory Culture [facility] 08/30/25 Verified W/ Gs 16:52 Vitamin D, 25-Hydroxy LAB 08/30/25 Verified 16:52 Vitamin B12 LAB 08/30/25 Verified 16:52 Urinalysis LAB 08/30/25 Verified 16:52 Thyroid Stimulating LAB 08/30/25 Verified Hormone 16:52 PTPTT LAB 08/30/25 Verified 16:52 Phosphorus LAB 08/30/25 Verified 16:52 Magnesium LAB 08/30/25 Verified 16:52 Lipid Panel LAB 08/30/25 Verified 16:52 Lactic Acid W/ Reflex LAB 08/30/25 Verified Order 16:52 Hemoglobin A1c LAB 08/30/25 Verified 16:52 Drug Screen LAB 08/30/25 Verified 16:52 Abg W/ Co-Ox RT 08/30/25 Verified 16:52 Date of Service: Aug 30, 2025 Billing Provider: DEEP RUBALCAVA MD Common Visit Codes: 54045-JKEYCOQ INP/OBS CARE (HIGH) Secondary Visit Codes: [id number] CARE PLAN 30 MINUTES YAA JENKINS RESIDENT Aug 30, 2025 16:59
[2025-08-30] MEDS ORDERED: VANCOMYCIN 1GM/250ML KIT 250 ML IV ONE (17:00)
[2025-08-30] MEDS: CEFEPIME 1GM/50ML 50 ML IV ONE (17:00)
[2025-08-30] MEDS ORDERED: ACETAMINOPHEN 325 MG TAB PO PRN (17:00)
[2025-08-30] MEDS ORDERED: VANCOMYCIN PER PHARMACY 0 MG IV SCH (17:00)
[2025-08-30] MEDS: FUROSEMIDE 20 MG/2 ML VIAL IV ONE (17:00)
[2025-08-30] MEDS ORDERED: ONDANSETRON HCL 4 MG/2 ML VIAL IV PRN (17:00)
[2025-08-30 17:27] LABS: Magnesium 1.7 mg/dL (1.6-2.6)
[2025-08-30 17:29] LABS: Cholesterol 235.0 mg/dL (< 200); HDL Cholesterol 45.0 mg/dL (40-59); Triglycerides 242.0 mg/dL (< 150)
[2025-08-30] MEDS: VANCOMYCIN 1GM/250ML KIT 250 ML IV SCH (17:30)
[2025-08-30] MEDS: FUROSEMIDE 20 MG/2 ML VIAL IV SCH (18:00)
[2025-08-30 19:05] LABS: COVID19 ANTIGEN SOFIA FIA NEGATIVE (NEGATIVE)
[2025-08-30 19:19] LABS: INR 1.03 (0.9-1.15); Partial Thromboplastin Time 28.2 SEC (24.5-34.5); Prothrombin Time 10.9 sec (9.3-11.8)
[2025-08-30 19:37] VITALS: BP 149/84; PULSE 87; RESP 14; TEMP 99.1; O2SAT 94
[2025-08-30 19:43] VITALS: O2SAT 96
[2025-08-30] MEDS: VANCOMYCIN 1GM/250ML KIT 500 ML IV ONE (21:45)
[2025-08-30] MEDS: CEFEPIME 1GM/50ML 50 ML IV SCH (23:00)
[2025-08-30 23:49] LABS: Alanine Aminotransferase 29.0 U/L (7-40); Albumin 4.4 g/dL (3.2-4.8); Alkaline Phosphatase 77.0 U/L (46-116); Bilirubin, Direct 0.2 mg/dL (<0.3); Bilirubin, Total 0.5 mg/dL (0.2-1.0); Creatine Kinase IFCC 126.0 U/L (46-171); Total Protein 7.3 g/dL (5.7-8.2)
[2025-08-31] VITALS (12 sets, daily range): BP systolic 90–122; BP diastolic 50–70; PULSE 68–103; RESP 16–22; TEMP 97.8–98.3; O2SAT 94–100
[2025-08-31] MEDS: LEVALBUTEROL HCL 1.25 MG/3 ML NEB NEB SCH (00:15)
[2025-08-31] MEDS: IPRATROPIUM BROM 0.5 MG/2.5ML INH SOL NEB SCH (00:15)
[2025-08-31 04:00] LABS: Hematocrit 39.0 % (41.0-53.0); Hemoglobin 13.4 g/dL (13.5-17.5); Mean Corpuscular Hemoglobin 33.2 pg (28.0-32.0); Mean Corpuscular Volume 96.9 fL (80.0-100.0); Nucleated Red Blood Cells % 0.1 %
[2025-08-31 04:23] LABS: Alanine Aminotransferase 27 U/L (7-40); Albumin 4.2 g/dL (3.2-4.8); Alkaline Phosphatase 71 U/L (46-116); Anion Gap 9 (5-15); BUN/Creatinine Ratio 22.1 (10.0-20.0); Blood Urea Nitrogen 19 mg/dL (9-23); Calcium 9.4 mg/dL (8.7-10.4); Carbon Dioxide 29 mmol/L (20-31); Chloride 100 mmol/L (98-107); Potassium 3.9 mmol/L (3.5-5.1); Sodium 138 mmol/L (136-145); Total Protein 7.1 g/dL (5.7-8.2)
[2025-08-31 04:24] LABS: Bilirubin, Total 0.4 mg/dL (0.2-1.0)
[2025-08-31 04:33] LABS: Glucose 147 mg/dL (74-106)
--- NOTE | 2025-08-31 05:04 | DVH ---
CHEST RADIOGRAPH Indication: Trach Technique: Single frontal view of the chest was obtained. Comparison: XY CHEST PORTABLE on DOS: 08/30/25 FINDINGS: Lines and Tubes: Tracheostomy tube noted. Lungs: There is bilateral interstitial prominence. No focal consolidation. Pleura: No effusion. No pneumothorax. Cardiomediastinal contours: Cardiomegaly. Bones: No acute osseous abnormality. IMPRESSION: 1. Cardiomegaly with bilateral interstitial prominence.
[2025-08-31] MEDS: ASPirin-EC 81 mg tab PO SCH (10:40)
[2025-08-31] MEDS: ENOXAPARIN SOD 40 MG/0.4 ML SYRINGE SC SCH (10:41)
[2025-08-31] MEDS: LISINOPRIL 20 MG TAB PO SCH (10:41)
[2025-08-31] MEDS: VANCOMYCIN 1.5GM/250ML 250 ML IV SCH (14:27)
[2025-08-31] MEDS: FENOFIBRATE MICRONIZED 200 MG PO SCH (22:00)
[2025-08-31] MEDS: ATORVASTATIN 20 MG TAB PO SCH (22:00)
[2025-09-01] VITALS (15 sets, daily range): BP systolic 91–180; BP diastolic 45–89; PULSE 78–100; RESP 15–24; TEMP 97.2–97.8; O2SAT 92–100
--- NOTE | 2025-09-01 05:39 | DVH ---
CHEST RADIOGRAPH Indication: Trach Technique: 1 view Comparison: XY CHEST XRAY 1 VIEW on DOS: 08/31/25, XY CHEST PORTABLE on DOS: 08/30/25, XY CHEST PAPO BLE on DOS: 10/14/24, XY CHEST PORTABLE on DOS: 10/12/24, XY CHEST PORTABLE on DOS: 04/29/23 FINDINGS/IMPRESSION: Nondiagnostic exam due to severe beam underpenetration, overlying wires and circulatory, and patient rotation.
--- NOTE | 2025-09-01 11:22 | CONS ---
Pharmacy Clinical Information: CHF FALL OUT From Heart Failure Fallout Report on CQM Application, Ky Giron is a 55-year-old male who with PMH of diabetes, and morbid obesity. While admitted, patient was diagnosed with acute on newly diagnosed congestive heart failure with an unknown LVEF. His home medications for blood pressure management include lisinopril, furosemide, and amlodipine. Inpatient medications for newly diagnosed CHF includes lisinopril, furosemide, atorvastatin, and amlodipine for bp management SGTL2i may be indicated for this patient as weight adjusted CrCl is 154.7 mL/min, BP 102/60 (102-180/39-89 range within last 24 hours), and serum glucose 147 mg/dL. May consider initiating for HF GDMT if/when clinically appropriate. ADRIENNE SOARES [facility] RESIDENT Sep 01, 2025 11:22
--- NOTE | 2025-09-01 12:06 | DVHPN2 ---
Progress Note Date Seen: Sep 01, 2025 Medical Necessity Reason Pt with a Central, PICC or Fol: No Subjective Patient reports: No new complaints Review of Systems: HEENT:Normal, CVS:Normal, RESPIRATORY:Normal, GI:Normal, :Normal, MSK:Normal, NEURO:Normal Objective vital signs Vital Sign Date Time Temp Pulse Resp B/P (MAP) Pulse Ox O2 Delivery O2 Flow Rate FiO2 09/01/25 10:00 102/60 09/01/25 09:00 97.4 78 18 95 97.4 09/01/25 06:30 Trach Collar 3.0 09/01/25 06:30 N/A Total Intake and Output 08/31/25 08/31/25 09/01/25 15:00 23:00 07:00 Intake Total 50.0 ml 240 ml Balance 50.0 ml 240 ml medications Current Medications Medications Dose Ordered Sig/Parker Route Start Time Stop Time Status Last Admin Dose Admin Acetaminophen 325 mg Q4HP PRN PO 08/30/25 17:00 Ondansetron HCl 4 mg Q4HP PRN IV 08/30/25 17:00 Enoxaparin Sodium 40 mg DAILY SC 08/31/25 10:00 09/01/25 10:24 40 MG Furosemide 20 mg BIDD IV 08/30/25 18:00 09/01/25 06:53 20 MG Aspirin 81 mg DAILY PO 08/31/25 10:00 09/01/25 10:24 81 MG Atorvastatin Calcium 40 mg HS PO 08/31/25 22:00 Levalbuterol HCl 0.625 mg Q6HWA NEB 08/31/25 00:00 09/01/25 06:31 0.625 MG Ipratropium [place] 0.5 mg Q6HWA NEB 08/31/25 00:00 09/01/25 06:31 0.5 MG Lisinopril 10 mg DAILY PO 09/02/25 10:00 UNV Ceftriaxone Sodium 50 ml @ 100 mls/hr DAILY@09 IV 09/02/25 09:00 UNV Azithromycin 500 mg DAILY PO 09/02/25 10:00 UNV Examination: GENERAL:Normal, HEENT:Normal, NECK:Normal, LUNGS:Normal, LUNGS:Abnormal (trach+), CVS:Normal, ABDOMEN:Normal, MSK:Normal, SKIN:Normal, NEURO:Normal, :Normal laboratory and microbiology Laboratory Tests 09/01/25 05:40 08/31/25 03:26 Test 08/31/25 03:26 Range/Units Serum Glucose 147 H 74-106 mg/dL Microbiology Date/Time Source Procedure Growth Status 08/30/25 18:35 Nose MRSA Screen - Final Complete 08/30/25 17:20 Blood Blood Culture - Preliminary NO GROWTH AFTER 24 HOURS OF INCUBATION. Resulted Problem List/Assessment/Plan Problem List/Assessment/Plan #1 acute resp failure: check d dimer #2 s/p trach #3 ?acute on chronic systolic/diastolic heart failure: lasix iv #4 morbid obesity #5 htn #6 hyperlipidemia #7 dm: ssi #8 ?pneumonia- gram positive/neg: iv antibiotics advance care planning- full code- time spent 19 mins Plan discussed with: Patient, Spouse My Orders My Orders Orders - KATHERINE ARNOLD MD Procedure Category Date Status Time Lisinopril Tablet PHA 09/02/25 Logged (Zestril Tablet) 10:00 Consistent DIET 09/01/25 Transmitted Carb(Ccho)Diabetes Lunch Ceftriaxone 1gm/50ml PHA 09/02/25 Logged (Rocephin) 09:00 Azithromycin Tablet PHA 09/02/25 Logged (Zithromax Tablet) 10:00 Bilat Lower Dvt US 09/01/25 Logged 11:57 D-Dimer LAB 09/01/25 Logged 11:57 Urinalysis LAB 09/01/25 Uncollected 11:57 Basic Metabolic Panel LAB 09/02/25 Verified 06:00 B-Type Natriuretic LAB 09/02/25 Verified Peptide 05:00 Magnesium LAB 09/02/25 Verified 05:00 Date of Service: Sep 01, 2025 Billing Provider: KATHERINE ARNOLD MD Common Visit Codes: [id number] INP/OBS CARE(HIGH) Secondary Visit Codes: [id number] CARE PLAN 30 MINUTES KATHERINE ARNOLD MD Sep 01, 2025 12:06
--- NOTE | 2025-09-01 12:34 | DVHSR ---
APPROVED REPORT EXAM: Two-dimensional and M-mode echocardiogram with Doppler and color Doppler. Blood Pressure: 131/66 mmHg INDICATION SOB RISK FACTORS Obesity: Height: 5'5'', Weight: 434 Mitral Valve MitralMitral Stenosis E/A ratio0.02D MVAcm2 Other Information Quality : Technically LimitedRhythm : Technically limited study due to body habitus, patient refused optison. Conclusion indeterminate study cannot assess LV, RV, chambers, or valves well
[2025-09-01 12:41] LABS: Urine Protein, UAD Negative (Negative)
[2025-09-01 12:58] LABS: Amphetamine Screen, Urine Neg (NEGATIVE); Barbiturate Scree,Urine Neg (NEGATIVE); Benzodiazephine Screen, Urine Neg (NEGATIVE); Cannabinoid Screen, Urine Neg (NEGATIVE); Cocaine Screen, Urine Neg (NEGATIVE); Opiate Scree,Urine Pos (NEGATIVE); Phencyclidine Screen, Urine Neg (NEGATIVE)
[2025-09-01] MEDS: AZITHROMYCIN 250 MG TAB PO SCH (13:08)
--- NOTE | 2025-09-01 13:09 | DVH ---
BILATERAL LOWER EXTREMITY VENOUS DUPLEX REASON FOR EXAMINATION: Bilateral lower extremity pain and edema. COMPARISON: ECHO 2D MODE CARDIAC DOP on DOS: 08/31/25 TECHNIQUE: Using real-time freeze-frame technique with a high-frequency transducer, multiple longitu dinal and transverse sections were obtained. Simultaneous color flow and spectral Doppler imaging wa s performed. FINDINGS: Images are suboptimal due to patient body habitus and difficulty repositioning. Venous comp ressibility is difficult to evaluate especially in the thicker portions of the extremity. No deep antoni ous intraluminal filling defect is identified. Color Doppler deep venous flow is grossly normal. IMPRESSION: No evidence of deep venous thrombosis within the limitations of this exam.
[2025-09-01] MEDS: ENOXAPARIN SOD 40 MG/0.4 ML SYRINGE SC SCH (21:56)
[2025-09-02] VITALS (12 sets, daily range): BP systolic 104–125; BP diastolic 54–81; PULSE 73–86; RESP 15–18; TEMP 97.3–98.4; O2SAT 90–99
[2025-09-02 02:02] LABS: Chloride 104 mmol/L (98-107); Potassium 4.2 mmol/L (3.5-5.1); Sodium 141 mmol/L (136-145)
[2025-09-02 02:03] LABS: Anion Gap 7 (5-15); Calcium 8.8 mg/dL (8.7-10.4); Carbon Dioxide 30 mmol/L (20-31)
[2025-09-02 02:08] LABS: BUN/Creatinine Ratio 24.1 (10.0-20.0); Blood Urea Nitrogen 19 mg/dL (9-23)
[2025-09-02 02:09] LABS: Magnesium 2.0 mg/dL (1.6-2.6)
[2025-09-02 02:12] LABS: Glucose 140 mg/dL (74-106)
[2025-09-02] MEDS: LISINOPRIL 5 MG TAB PO SCH (10:00)
--- NOTE | 2025-09-02 11:34 | DVHPN2 ---
Progress Note Date Seen: Sep 02, 2025 Medical Necessity Reason Pt with a Central, PICC or Fol: No Subjective Patient reports: No new complaints Review of Systems: HEENT:Normal, CVS:Normal, RESPIRATORY:Normal, GI:Normal, :Normal, MSK:Normal, NEURO:Normal Objective vital signs Vital Sign Date Time Temp Pulse Resp B/P (MAP) Pulse Ox O2 Delivery O2 Flow Rate FiO2 09/02/25 08:49 97.6 74 18 106/55 (72) 98 97.6 09/02/25 08:00 Trach Collar 3 N/A Total Intake and Output 09/01/25 09/01/25 09/02/25 15:00 23:00 07:00 Intake Total 600 ml 236 ml Output Total 4 ml Balance 596 ml 236 ml medications Current Medications Medications Dose Ordered Sig/Parker Route Start Time Stop Time Status Last Admin Dose Admin Acetaminophen 325 mg Q4HP PRN PO 08/30/25 17:00 Ondansetron HCl 4 mg Q4HP PRN IV 08/30/25 17:00 Furosemide 20 mg BIDD IV 08/30/25 18:00 09/02/25 05:39 20 MG Aspirin 81 mg DAILY PO 08/31/25 10:00 09/02/25 10:00 81 MG Atorvastatin Calcium 40 mg HS PO 08/31/25 22:00 09/01/25 21:55 40 MG Levalbuterol HCl 0.625 mg Q6HWA NEB 08/31/25 00:00 09/01/25 19:53 0.625 MG Ipratropium [place] 0.5 mg Q6HWA NEB 08/31/25 00:00 09/01/25 19:52 0.5 MG Lisinopril 10 mg DAILY PO 09/02/25 10:00 Ceftriaxone Sodium 50 ml @ 100 mls/hr DAILY@09 IV 09/01/25 13:00 09/02/25 10:00 100 MLS/HR Azithromycin 500 mg DAILY PO 09/01/25 12:59 09/02/25 10:01 500 MG Enoxaparin Sodium 40 mg BID SC 09/01/25 22:00 09/02/25 10:02 40 MG Examination: GENERAL:Normal, HEENT:Normal, NECK:Normal, LUNGS:Normal, LUNGS:Abnormal (trach+), CVS:Normal, ABDOMEN:Normal, MSK:Normal, SKIN:Normal, NEURO:Normal, :Normal laboratory and microbiology Laboratory Tests 09/02/25 01:25 08/31/25 03:26 Test 09/02/25 01:25 Range/Units Serum Glucose 140 H 74-106 mg/dL Microbiology Date/Time Source Procedure Growth Status 08/30/25 18:35 Nose MRSA Screen - Final Complete 08/30/25 17:20 Blood Blood Culture - Preliminary NO GROWTH AFTER 48 HOURS OF INCUBATION. Resulted Problem List/Assessment/Plan Problem List/Assessment/Plan #1 acute resp failure: check d dimer #2 s/p trach #3 ?acute on chronic systolic/diastolic heart failure: lasix iv #4 morbid obesity #5 htn #6 hyperlipidemia #7 dm: ssi #8 ?pneumonia- gram positive/neg: iv antibiotics advance care planning- full code- time spent 19 mins Plan discussed with: Patient My Orders My Orders Orders - KATHERINE ARNOLD MD Procedure Category Date Status Time Consistent DIET 09/01/25 [facility]Di[facility] Lunch Bilat Lower Dvt US 09/01/25 Resulted 11:57 Urinalysis LAB 09/01/25 Logged 12:06 Enoxaparin Sodium PHA 09/01/25 In Process (Lovenox) 22:00 Ceftriaxone 1gm/50ml PHA 09/01/25 In Process (Rocephin) 13:00 Azithromycin Tablet PHA 09/01/25 In Process (Zithromax Tablet) 12:59 Lisinopril Tablet PHA 09/02/25 In Process (Zestril Tablet) 10:00 Date of Service: Sep 02, 2025 Billing Provider: KATHERINE ARNOLD MD Common Visit Codes: [id number] INP/OBS CARE(HIGH) KATHERINE ARNOLD MD Sep 02, 2025 11:34
[2025-09-03] VITALS (7 sets, daily range): BP systolic 106–125; BP diastolic 64–75; PULSE 71–82; RESP 17–19; TEMP 96.3–98.2; O2SAT 94–100
[2025-09-03] MEDS ORDERED: OLOP0.1S7 OP (11:07)
[2025-09-03] MEDS ORDERED: AZITTAB2 PO (11:07)
--- NOTE | 2025-09-03 11:17 | DVHDS ---
DATE OF DISCHARGE: 09/03/2025 HISTORY OF PRESENT ILLNESS: The patient is a 55-year-old gentleman who was admitted with a history of increasing shortness of breath and headaches and blurry vision. The patient has a history of morbid obesity, tracheostomy, congestive heart failure, and diabetes. HOSPITAL COURSE: The patient had chest x-ray that showed evidence of cardiomegaly with pulmonary venous congestion. The patient's blood cultures were negative. He was placed on intravenous diuresis. The patient's echocardiogram was technically limited. The patient will now be discharged home to resume his home medications as well as to be on Zithromax 500 mg daily for 3 days. He will follow up with his primary in 1 week and will continue his home diuretics. FINAL DIAGNOSES: Therefore: * acute respiratory failure. * Likely acute on chronic systolic-diastolic heart failure. * Questionable pneumonia Gram-positive, Gram-negative. * History of tracheostomy. * Morbid obesity. * Diabetes mellitus. * Hypertension. * Hyperlipidemia. Time spent in discharge planning and review of plan with the patient and nursing was 38 minutes. MD RAMESH Aguilera/EKT TID: [id number] RECEIPT: [id number] MTDSelvin
--- NOTE | 2025-09-04 11:08 | DVHDS2 ---
Discharge Summary Date of Admission Aug 30, 2025 at 16:52 Date of Discharge: Sep 03, 2025 Labs/Diagnostic Data: Laboratory Results Test 09/02/25 01:25 09/01/25 13:10 09/01/25 12:24 08/31/25 03:26 Sodium Level 141 mmol/L (136-145) Potassium Level 4.2 mmol/L (3.5-5.1) Chloride Level 104 mmol/L (98-107) Carbon Dioxide Level 30 mmol/L (20-31) Anion Gap 7 (5-15) Blood Urea Nitrogen 19 mg/dL (9-23) Creatinine 0.79 mg/dL (0.700-1.30) Glomerular Filtration Rate Calc 105 mL/min (>90) BUN/Creatinine Ratio 24.1 (10.0-20.0) Serum Glucose 140 mg/dL (74-106) Calcium Level 8.8 mg/dL (8.7-10.4) Magnesium Level 2.0 mg/dL (1.6-2.6) B-Type Natriuretic Peptide 21.98 pg/mL (0-100) Vancomycin Level Trough 3.9 ug/mL (5-10) D-Dimer, Quantitative 0.66 mg/L FEU (0.0-0.49) Urine Color Light-yellow (Yellow) Urine Clarity Clear (Clear) Urine pH 5.5 (5.0-9.0) Urine Specific [place] 1.017 (1.001-1.035) Urine Protein Negative (Negative) Urine Ketones Negative (Negative) Urine Blood Negative /uL (Negative) Urine Nitrite Negative (Negative) Urine Bilirubin Negative (Negative) Urine Urobilinogen Normal mg/dL (Negative) Urine Leukocyte Esterase Negative /uL (Negative) Urine RBC None seen /hpf (0 - 3) Urine Microscopic WBC 1 /HPF (0-3) Urine Squamous Epithelial Cells Few /hpf (<5) Urine Bacteria None seen /hpf (None Seen) Urine Glucose Normal mg/dL (Normal) Urine Opiates Screen Pos (NEGATIVE) Urine Fentanyl Screen Neg (NEGATIVE) Urine Barbiturates Screen Neg (NEGATIVE) Urine Phencyclidine Screen Neg (NEGATIVE) Urine Amphetamines Screen Neg (NEGATIVE) Urine Benzodiazepines Screen Neg (NEGATIVE) Urine Cocaine Screen Neg (NEGATIVE) Urine Cannabinoids Screen Neg (NEGATIVE) White Blood Count 7.8 10^3/uL (4.4-10.8) Red Blood Count 4.02 10^6/uL (4.5-5.90) Hemoglobin 13.4 g/dL (13.5-17.5) Hematocrit 39.0 % (41.0-53.0) Mean Corpuscular Volume 96.9 fL (80.0-100.0) Mean Corpuscular Hemoglobin 33.2 pg (28.0-32.0) Mean Corpuscular Hemoglobin Concent 34.3 g/dL (32.0-36.0) Red Cell Distribution Width 13.3 % (11.8-14.3) Platelet Count 196 10^3/uL (140-450) Mean Platelet Volume 9.6 fL (6.9-10.8) Neutrophils (%) (Auto) 75.8 % (37.0-80.0) Lymphocytes (%) (Auto) 12.3 % (10.0-50.0) Monocytes (%) (Auto) 9.6 % (0.0-12.0) Eosinophils (%) (Auto) 1.9 % (0.0-7.0) Basophils (%) (Auto) 0.4 % (0.0-2.0) Neutrophils # (Auto) 5.9 10 ^3/uL (1.6-8.6) Lymphocytes # (Auto) 1.0 10 ^3/uL (0.4-5.4) Monocytes # (Auto) 0.7 10 ^3/uL (0-1.3) Eosinophils # (Auto) 0.2 10 ^3/uL (0-0.8) Basophils # (Auto) 0 10 ^3/uL (0-0.2) Nucleated Red Blood Cells 0.1 % Total Bilirubin 0.4 mg/dL (0.2-1.0) Aspartate Amino Transferase (AST) 41 U/L (13-40) Alanine Aminotransferase (ALT) 27 U/L (7-40) Alkaline Phosphatase 71 U/L (46-116) Total Protein 7.1 g/dL (5.7-8.2) Albumin 4.2 g/dL (3.2-4.8) Random Vancomycin Level 12.4 ug/mL (5-10) Test 08/30/25 18:50 08/30/25 18:33 08/30/25 17:28 08/30/25 17:20 Prothrombin Time 10.9 sec (9.3-11.8) Prothrombin Time INR 1.03 (0.9-1.15) Activated Partial Thromboplast Time 28.2 SEC (24.5-34.5) Influenza Type A Antigen Negative (Negative) Influenza Type B Antigen Negative (Negative) SARS-CoV-2 Antigen (Rapid) Negative (NEGATIVE) Blood Gas Specimen Type Venous Blood Gas Sample Site Vbg - n/a Blood Gas Patient Temperature 37.0 Arterial Blood Date Drawn [id number] Jerson Test Yes Venous Blood pH 7.341 (7.320-7.430) Venous Blood pCO2 at Patient Temp 48.4 mmHg (38.0-54.0) Venous Blood pO2 at Patient Temp < 36.5 mmHg (23.0-48.0) Venous Blood HCO3 25.6 mmol/L (22.0-29.0) Venous Blood Base Excess -0.7 mmol/L (-2.0-3.0) Blood Gas Liter Flow 3.00 Blood Gas Modality Vbg - n/a Blood Gas Spontaneous Rate 20 FiO2 % 32.0 Specimen Drawn By Alice rao rt Lactic Acid Level 1.3 mmol/L (0.4-2.0) Test 08/30/25 15:26 08/30/25 14:33 Troponin I High Sensitivity < 3 ng/L (</=54) Hemoglobin A1c 6.8 % A1C (<5.7) Phosphorus Level 3.2 mg/dL (2.4-5.1) Direct Bilirubin 0.2 mg/dL (<0.3) Creatine Kinase 126 U/L (46-171) Triglycerides Level 242 mg/dL (< 150) Cholesterol Level 235 mg/dL (< 200) LDL Cholesterol 161 mg/dL (< 100) HDL Cholesterol 45 mg/dL (40-59) Vitamin B12 Level 494 pg/mL (211-911) Vitamin D 25-Hydroxy 8.3 ng/mL (30.0-100) Thyroid Stimulating Hormone (TSH) 1.51 uIU/mL (0.55-4.78) Other Laboratory Tests 09/02/25 01:25 08/31/25 03:26 Brief Hx & Hospital Course: see dictated note Condition at Discharge: Fair Final Diagnosis/Problems List chf Discharge Disposition: Home Discharge Instruct/Medications Diet: Consistent carbohydrate, Cardiac 2g Na,low cholest Activity: No Restrictions, As Tolerated Follow Up/Referral: camilla moore pcp in 1 wk Medications: resume home meds script to pharmacy Scheduled Amlodipine Besylate (Amlodipine Besylate), 1 TAB PO DAILY, (Reported) Amoxicillin & Pot Clavulanate (Augmentin Tablet), 875 MG PO BID Aspirin (Aspir-Low), 81 MG PO DAILY, (Reported) Fenofibrate (Fenofibrate Micronized), 1 CAP PO DAILY, (Reported) Furosemide (Furosemide), 1 TAB PO BID, (Reported) Lisinopril (Lisinopril), 1 TAB PO DAILY, (Reported) Metformin Hydrochloride (Metformin Hcl), 1 TAB PO BID, (Reported) Pioglitazone Hydrochloride (Pioglitazone Hcl), 1 TAB PO DAILY, (Reported) Scheduled PRN Hydrocodone-Acetaminophen (Hydrocodone/Acetaminophen 10-325 mg), 1 TAB PO Q4HP PRN for PAIN, (Reported) Nitroglycerin (Nitrostat), 0.4 MG SL PRN PRN for FOR CHEST PAIN, (Reported) Discharge Statement: "Patient was advised to return to the ER or call 911 if any headaches, dizziness, shortness of breath, chest pain, abdominal pain, bleeding, fevers, or worsening of medical condition. Patient was counseled about treatment plan, medications, possible side effects, patientverbalized understanding. All questions were answered to the best of my ability. This discharge took greater then 30 minutes in planning, reviewing documentation, counseling the patient, and discussing with other team members." ASSESSMENT ASSESSMENT Assessment chf Date of Service: Sep 03, 2025 Billing Provider: KATHERINE ARNOLD MD Common Visit Codes: 86129-TJB/OBS DISCH DAY >30min KATHERINE ARNOLD MD Sep 03, 2025 11:03
== END 2025-09-03 13:22 | disposition home or self-care (01) | DRG 177 ==
LOC: ER 14:03 → OVERFLOW 16:52 → TELE-WESTW 08-31 15:30
PROVIDERS: ADMIT Internal Medicine; ATTEND Internal Medicine
DX: J15.69 Pneumonia due to other Gram-negative bacteria (principal); I50.43 Acute on chronic combined systolic (congestive) and diastolic (congestive) heart failure; I11.0 Hypertensive heart disease with heart failure; J15.9 Unspecified bacterial pneumonia; E11.9 Type 2 diabetes mellitus without complications; Z20.822 Contact with and (suspected) exposure to COVID-19; E66.01 Morbid (severe) obesity due to excess calories; E78.5 Hyperlipidemia, unspecified; Z79.84 Long term (current) use of oral hypoglycemic drugs; Z79.82 Long term (current) use of aspirin; Z83.3 Family history of diabetes mellitus; Z79.899 Other long term (current) drug therapy
CPT/HCPCS: 36415; 36600; 71045; 80048; 80053; 80061; 80076; 80202; 80307; 81001; 82306; 82550; 82565; 82607; 82805; 83036; 83605; 83735; 83880; 84100; 84443; 84484; 85025; 85379; 85610; 85730; 87040; 87081; 87426; 87804; 93005; 93306; 93970; 94640; 96365; 96368; 99291; 99292; G0378; J2543